=== PATIENT | female | born 1940 | race Two or more races ===

== ENCOUNTER 2017-06-21 06:48 | Day surgery (SDC) | payer MEDICARE, OTHER ==
[~2017-06-21 06:48] MED LIST: Lactated Ringers 1,000 ML IV SCH; Sodium Chloride 0.9% 10 ML Syringe FLUSH PRN; Sodium Chloride 0.9% 2.5 ML Syringe FLUSH PRN
--- NOTE | 2017-06-21 07:26 | PCM.PREANE ---
Preanesthetic Assessment - Anesthesia/Transfusion/Family Hx Anesthesia History: Prior Anesthesia Without Reaction Other Type of Anesthesia Reaction Comment: states she "had paralysis after her rectocele repair" Family History of Anesthesia Reaction: No Transfusion History: No Prior Transfusion(s) Intubation History: Unknown - Review of Systems General: No Symptoms Pulmonary: No Symptoms Cardiovascular: No Symptoms Gastrointestinal: Difficulty Swallowing, Hematochezia Neurological: No Symptoms Other: Reports: None - Physical Assessment O2 Sat by Pulse Oximetry: 97 Respiratory Rate: 16 Vital Signs: Last Vital Signs Temp 35.6 C 06/21/17 07:10 Pulse 79 06/21/17 07:10 Resp 16 06/21/17 07:10 BP 105/58 L 06/21/17 07:10 Pulse Ox 97 06/21/17 07:10 Height: 1.57 m Weight: 72.575 kg ASA Class: 3 Mental Status: Alert & Oriented x3 Airway Class: Mallampati = 2 Dentition: Reports: Partial (upper bilateral on both sides, lower right (all permanent)) Thyro-Mental Finger Breadths: 3 Mouth Opening Finger Breadths: 3 ROM/Head Extension: Full Lungs: Clear to Auscultation, Normal Respiratory Effort Cardiovascular: Regular Rate, Regular Rhythm - Allergies Allergies/Adverse Reactions: Allergies Allergy/AdvReac Type Severity Reaction Status Date / Time acetaminophen Allergy Rash Verified 06/19/17 10:24 [From Excedrin Back & Body] aspirin Allergy Rash Verified 06/19/17 10:24 [From Excedrin Back & Body] calcium carbonate Allergy Rash Verified 06/19/17 10:24 [From Excedrin Back & Body] diclofenac Allergy Rash Verified 06/19/17 10:24 hydrocodone bitartrate Allergy Other Verified 06/19/17 10:24 [From [place]] naproxen sodium [From Aleve] Allergy Rash Verified 06/19/17 10:24 povidone-iodine Allergy Rash Verified 06/19/17 10:24 [From Betadine] soap [From Betadine] Allergy Rash Verified 06/19/17 10:24 Sulfa (Sulfonamide Allergy Cough Verified 06/19/17 10:24 Antibiotics) venom-honey bee Allergy Anaphylactic Verified 06/19/17 10:24 [bee venom (honey bee)] Shock - Blood Blood Available: No - Anesthesia Plan Pre-Op Medication Ordered: None - Acknowledgements Anesthesia Type Planned: MAC Pt an Appropriate Candidate for the Planned Anesthesia: Yes Alternatives and Risks of Anesthesia Discussed w Pt/Guardian: Yes Pt/Guardian Understands and Agrees with Anesthesia Plan: Yes PreAnesthesia Questionnaire HEENT History: Reports: Impaired Vision, Other (See Below) (frequent nose bleeds ) Other HEENT History: wears glasses, has top and bottom permanent bridge Cardiovascular History: Reports: High Cholesterol, Hypertension Gastrointestinal History: Reports: Chronic Constipation, GERD, Hiatal Hernia, Other (See Below) Other Gastrointestinal History: hx gastric ulcer Genitourinary History: Reports: None Musculoskeletal History: Reports: Arthritis, Fibromyalgia Neurological History: Reports: TIA, Other (See Below) Other Neuro History: hx TIA in May, 2011, hx surgery for brain tumor Psychiatric History: Reports: Anxiety, Depression Hematologic History: Reports: Anemia Dermatologic History: Reports: Eczema Other Dermatologic History: eczema to feet - Past Surgical History Head Surgeries/Procedures: Reports: Other (See Below) (intracranial tumor resection) GI Surgical History: Reports: Appendectomy, Cholecystectomy, Colon, Colonoscopy , Other (See Below) Other GI Surgeries/Procedures: hx ventral heria repair, repair of paraesophageal hiatus hernia, hx parial colectomy (sigmoidectomy) Female Surgical History: Reports: Hysterectomy Other Female Surgeries/Procedures: bladder repair & rectocele repair - SUBSTANCE USE Smoking Status *Q: Never Smoker Second Hand Smoke Exposure: No Recreational Drug Use History: No - HOME MEDS Home Medications: Home Meds Losartan/Hydrochlorothiazide [Losartan-HCTZ 50-12.5 MG] 1 tab PO DAILY 12/13/15 [History] Aspirin/Sod Bicarb/Citric Acid [[place] Es Tab Eff] 1 dose PO ASDIRECTED PRN 06/19/17 [History] Clopidogrel Bisulfate [Plavix] 75 mg PO DAILY 06/19/17 [History] DULoxetine HCl [Cymbalta] 60 mg PO BID 06/19/17 [History] Desvenlafaxine [Khedezla] 50 mg PO DAILY 06/19/17 [History] LORazepam 1 tab PO ASDIRECTED PRN 06/19/17 [History] Latanoprost [Xalatan 0.005% Ophth Soln] 1 drop EYEBOTH BEDTIME 06/19/17 [History ] Simvastatin [Zocor] 20 mg PO DAILY 06/19/17 [History] traMADol HCl [Tramadol HCl] 50 mg PO ASDIRECTED PRN 06/19/17 [History] - CURRENT (IN HOUSE) MEDS Current Meds: Current Medications Lactated Ringer's (Ringers, Lactated) 1,000 mls @ 125 mls/hr IV ASDIRECTED [place] Last Admin: 06/21/17 07:13 Dose: 125 mls/hr Sodium Chloride (Saline Flush) 10 ml FLUSH ASDIRECTED PRN PRN Reason: Keep Vein Open Sodium Chloride (Saline Flush) 2.5 ml FLUSH ASDIRECTED PRN PRN Reason: Keep Vein Open
[2017-06-21] MEDS ORDERED: Midazolam 1 MG/ML 2 ML SDV ONE (07:36)
[2017-06-21] MEDS ORDERED: Propofol 200 MG/20 ML SDV ONE ×3 (07:36→08:54)
[2017-06-21] MEDS ORDERED: fentaNYL 100 MCG/2 ML SDV ONE (07:36)
[2017-06-21] MEDS ORDERED: ePHEDrine 50 MG/ML SDV ONE (08:11)
[2017-06-21] MEDS ORDERED: cefOXitin 1 GM Vial ONE (09:03)
[2017-06-21 12:19] VITALS: BP 106/67
--- NOTE | 2017-06-21 12:54 | PCM.OPNOTE ---
- General Post-Op/Procedure Note Date of Surgery/Procedure: 06/21/17 Operative Procedure(s): Diagnostic EGD and colonoscopy Findings: EGD: paraesophageal hernia, unable to intubate the duodenal bulb due to tortuous antrum. Patient had gastritis and an area of thickening along the gastric rugae of the distal body. Colonoscopy: Multiple colon polyps. Largest polyp was in the sigmoid colon requiring several passes with loop cautery. Electrocautery used at the end to achieve hemostasis. - Cecal polyp - 3 ascending colon polyps - 2 hepatic flexure polyps - 3 transverse colon polyps - 1 splenic flexure polyp - 1 descending colon polyp - Large sigmoid colon polyp at 40 cm Pre Op Diagnosis: Dysphagia, changes in bowel habits Post-Op Diagnosis: Multiple colon polyps, gastritis, paraesophageal hernia, gastric body lesion Anesthesia Technique: MAC Primary Surgeon: Maricarmen Matthew Condition: Good Free Text/Narrative:: Intake & Output 06/20/17 06/21/17 06/21/17 22:59 06:59 14:59 Intake Total 1250 Balance 1250
--- NOTE | 2017-06-21 18:34 | OR ---
SURGEON: MARICARMEN MATTHEW MD DATE OF PROCEDURE: 06/21/2017 PREOPERATIVE DIAGNOSIS: Change in bowel habits, dysphagia. POSTOPERATIVE DIAGNOSES: 1. Gastritis. 2. Paraesophageal hernia. 3. Lesion of stomach. 4. Polyp of the cecum. 5. Polyp of ascending colon. 6. Hepatic flexure polyp. 7. Transverse colon polyp. 8. Splenic flexure polyp. 9. Descending colon polyp. 10.Polyp of sigmoid colon. PROCEDURE PERFORMED: Diagnostic EGD and colonoscopy. ENDOSCOPIST: Dr. Maricarmen Matthew. ANESTHESIA: MAC. INSTRUMENT USED: Olympus endoscope, Olympus colonoscope. EXTENT OF EXAM: To the pylorus, to the cecum. PREPARATION: Good. LIMITATIONS: Unable to transverse my endoscope past the pylorus due to anatomic positioning of the pylorus. INDICATIONS: The patient is a 77-year-old female, who comes to me with changes in her bowel habits as well as dysphagia. She underwent an esophagram that showed a paraesophageal hernia. She does have a history of a previous [place]. Her surgical history is significant for either for some surgical procedure for a rectal prolapse. The patient and I discussed the need to perform a diagnostic EGD and colonoscopy. We discussed the procedures as well as expected perioperative course. We discussed the risks, including bleeding, infection, or damage to surrounding structures, including perforation. The patient verbalized understanding and wishes to proceed. PROCEDURE IN DETAIL: The patient was brought into the endoscopy suite and placed in the left lateral decubitus position. A time-out was completed verifying the patient's name, age, date of , allergies, and procedure to be performed. A bite block was placed in the patient's mouth. Monitored anesthesia care was induced and continuous oxygen was provided via nasal cannula throughout the procedure. After adequate sedation was achieved, a well lubricated endoscope was placed in the patient's mouth and advanced under direct visualization into the stomach. I was unable to get my scope to go through the pylorus due to some tortuosity of the distal stomach. I attempted this multiple times, but was unable to do so. I could see the duodenal bulb and it did appear normal. A photograph was taken of the pylorus as well as with the scope in the retroflexed position. The patient was noted to have a paraesophageal hernia consistent with the findings on her previous esophagram. The patient did have gastritis in the gastric body and antrum. Along the distal body in the greater curvature, there were white thickened lesions along the mucosal folds. Biopsies were taken of the gastric body, antrum, and fundus and sent for H. pylori testing. Biopsies were taken of the gastric body lesions and sent for pathologic review. The scope was then brought into the distal esophagus and a photograph was taken. This area appeared normal with no evidence of inflammation or erosions. The remainder of the esophagus was normal. The scope was then removed from the patient and this portion of procedure was terminated. A digital rectal exam was performed, this exam was within normal limits. A well lubricated colonoscope was then inserted into the rectum and advanced under direct visualization of the cecum. The cecum was identified by both visual and anatomic landmarks. A photograph was taken of the cecal cap. The scope was then retroflexed within the cecum and a photograph was taken. The patient was noted have multiple polyps throughout the colon. There was one polyp in the cecum that was removed using a cold biopsy forceps. The patient had 3 ascending colon polyps, 2 hepatic flexure polyps, 3 transverse colon polyps, a splenic flexure polyp and a descending colon polyp. These were all removed using a cold biopsy forceps. The patient was noted to have a large irregular appearing mass in the sigmoid colon. This was removed using a loop wire and electrocautery. It was removed from the patient's both by suction as well as using a [place]. After removing grossly apparent mass, the patient was noted to have some bleeding at the base. Electrocautery was used to obtain hemostasis. I finished the remainder of my colonoscopy, then re-entered the colon and double-checked the area to ensure that the area had stopped bleeding. A good clot was noted and no further bleeding was found. The remainder of the colon appeared normal. The scope was brought into the rectum and retroflexed then a photograph was taken. This appeared normal. The scope was then straightened out and removed from the patient. The patient tolerated the procedure well and was taken to the PACU in stable condition. I was there with the patient in the postoperative care unit. ENDOSCOPIC FINDINGS: 1. Gastritis. 2. Paraesophageal hernia. 3. Lesion of stomach. 4. Polyp of the cecum. 5. Polyp of ascending colon. 6. Hepatic flexure polyp. 7. Transverse colon polyp. 8. Splenic flexure polyp. 9. Descending colon polyp. 10.Polyp of sigmoid colon. RECOMMENDATIONS: Follow up in clinic in 2 weeks. The patient is to avoid any aspirin or NSAID within the next week. I will also start her on pantoprazole for the gastritis. CRUZ DURHAM /[id number] MTDD
== END 2017-06-21 10:00 | disposition home or self-care (01) ==
LOC: MW.SDS 06:48
PROVIDERS: ATTEND Surgery
DX: D12.0 Benign neoplasm of cecum (principal); K29.50 Unspecified chronic gastritis without bleeding; K44.9 Diaphragmatic hernia without obstruction or gangrene; F32.9 Major depressive disorder, single episode, unspecified; D12.3 Benign neoplasm of transverse colon; D12.2 Benign neoplasm of ascending colon; D12.4 Benign neoplasm of descending colon; D12.5 Benign neoplasm of sigmoid colon; M79.7 Fibromyalgia; M19.90 Unspecified osteoarthritis, unspecified site; J32.9 Chronic sinusitis, unspecified; H40.9 Unspecified glaucoma; F41.9 Anxiety disorder, unspecified; I10 Essential (primary) hypertension; K21.9 Gastro-esophageal reflux disease without esophagitis; E78.5 Hyperlipidemia, unspecified; Z88.2 Allergy status to sulfonamides; Z88.8 Allergy status to other drugs, medicaments and biological substances; Z91.030 Bee allergy status; Z79.51 Long term (current) use of inhaled steroids; Z79.899 Other long term (current) drug therapy; Z98.890 Other specified postprocedural states; Z90.49 Acquired absence of other specified parts of digestive tract; Z90.710 Acquired absence of both cervix and uterus; Z86.73 Personal history of transient ischemic attack (TIA), and cerebral infarction without residual deficits
CPT/HCPCS: 43239; 45378; 88305; 88312; J0694; J2250; J3010; J7120; 00740; J2704

== ENCOUNTER 2017-11-11 16:16 | Emergency (ER) | payer MEDICARE, OTHER ==
--- NOTE | 2017-11-11 16:48 | EDM.PDOC ---
ED HPI GENERAL MEDICAL PROBLEM - General Chief Complaint: Skin Complaint Stated Complaint: RT HAND SWOLLEN Time Seen by Provider: 11/11/17 16:25 Source of Information: Reports: Patient History Limitations: Reports: No Limitations - History of Present Illness INITIAL COMMENTS - FREE TEXT/NARRATIVE: HISTORY AND PHYSICAL: History of present illness: Shayy is a 77-year-old female here with concerns for a foreign body in her right hand. He states that yesterday she was working in her garden and scraped her hand against a stick and believes there is a splinter in her hand. Hand is now swollen, erythematous, and painful. She denies fevers. She has not taken anything OTC for her symptoms. Review of systems: As per history of present illness and below otherwise all systems reviewed and negative. Past medical history: As per history of present illness and as reviewed below otherwise noncontributory. Surgical history: As per history of present illness and as reviewed below otherwise noncontributory. Social history: No reported history of drug or alcohol abuse. Family history: As per history of present illness and as reviewed below otherwise noncontributory. Physical exam: HEENT: Atraumatic, normocephalic, pupils reactive, negative for conjunctival pallor or scleral icterus, mucous membranes moist, throat clear, neck supple, nontender, trachea midline. Extremities: Right hand is swollen and erythematous from the mid-palm distally. There is a tiny puncture site at the medial aspect of the hand. Neurovascular unremarkable. Neuro: Awake, alert, oriented. Cranial nerves II through XII unremarkable. Cerebellum unremarkable. Motor and sensory unremarkable throughout. Exam nonfocal. Notes: Diagnostics: [X-ray right hand] Therapeutics: [1 g IM Rocephin] Impression: [Cellulitis] Plan: [1. Take Keflex as directed 2. [place] orthopedic hand dressing placed 3. Erythema outlined 4. Follow-up in ED tomorrow, sooner as needed as discussed] Definitive disposition and diagnosis as appropriate pending reevaluation and review of above. Right Hand Pain Score (Numeric/FACES): 7 - Related Data Allergies Allergy/AdvReac Type Severity Reaction Status Date / Time acetaminophen Allergy Rash Verified 06/19/17 10:24 [From Excedrin Back & Body] aspirin Allergy Rash Verified 06/19/17 10:24 [From Excedrin Back & Body] calcium carbonate Allergy Rash Verified 06/19/17 10:24 [From Excedrin Back & Body] diclofenac Allergy Rash Verified 06/19/17 10:24 hydrocodone bitartrate Allergy Other Verified 06/19/17 10:24 [From [place]] naproxen sodium [From Aleve] Allergy Rash Verified 06/19/17 10:24 povidone-iodine Allergy Rash Verified 06/19/17 10:24 [From Betadine] soap [From Betadine] Allergy Rash Verified 06/19/17 10:24 Sulfa (Sulfonamide Allergy Cough Verified 06/19/17 10:24 Antibiotics) venom-honey bee Allergy Anaphylactic Verified 06/19/17 10:24 [bee venom (honey bee)] Shock Home Meds: Home Meds Losartan/Hydrochlorothiazide [Losartan-HCTZ 50-12.5 MG] 1 tab PO DAILY 12/13/15 [History] DULoxetine HCl [Cymbalta] 60 mg PO BID 06/19/17 [History] Desvenlafaxine [Khedezla] 50 mg PO DAILY 06/19/17 [History] LORazepam 1 tab PO ASDIRECTED PRN 06/19/17 [History] Latanoprost [Xalatan 0.005% Ophth Soln] 1 drop EYEBOTH BEDTIME 06/19/17 [History ] Simvastatin [Zocor] 20 mg PO DAILY 06/19/17 [History] traMADol HCl [Tramadol HCl] 50 mg PO ASDIRECTED PRN 06/19/17 [History] Pantoprazole [ProTONIX] 40 mg PO ACBREAKFAST #30 tab.cr 06/21/17 [Rx] Past Medical History HEENT History: Reports: Impaired Vision, Other (See Below) (frequent nose bleeds ) Other HEENT History: Refuses to give any information. Uncooperative to answering questions Cardiovascular History: Reports: High Cholesterol, Hypertension Gastrointestinal History: Reports: Chronic Constipation, GERD, Hiatal Hernia, Other (See Below) Other Gastrointestinal History: hx gastric ulcer Genitourinary History: Reports: None Musculoskeletal History: Reports: Arthritis, Fibromyalgia Neurological History: Reports: TIA, Other (See Below) Other Neuro History: hx TIA in May, 2011, hx surgery for brain tumor Psychiatric History: Reports: Anxiety, Depression Hematologic History: Reports: Anemia Dermatologic History: Reports: Eczema Other Dermatologic History: eczema to feet - Past Surgical History Head Surgeries/Procedures: Reports: Other (See Below) (intracranial tumor resection) GI Surgical History: Reports: Appendectomy, Cholecystectomy, Colon, Colonoscopy , Other (See Below) Other GI Surgeries/Procedures: hx ventral heria repair, repair of paraesophageal hiatus hernia, hx parial colectomy (sigmoidectomy) Female Surgical History: Reports: Hysterectomy Other Female Surgeries/Procedures: bladder repair & rectocele repair Social & Family History - Family History Family Medical History: Unobtainable - Tobacco Use Smoking Status *Q: Unknown Ever Smoked Second Hand Smoke Exposure: No - Recreational Drug Use Recreational Drug Use: No ED ROS GENERAL - Review of Systems Review Of Systems: ROS reveals no pertinent complaints other than HPI. ED EXAM, SKIN/RASH Exam: See Below (See dictation) Course - Vital Signs Last Recorded V/S: Last Vital Signs Temp 37.1 C 11/11/17 16:53 Pulse 91 11/11/17 16:53 Resp 16 11/11/17 16:53 BP 160/67 H 11/11/17 16:53 Pulse Ox 96 11/11/17 16:53 - Orders/Labs/Meds Orders: Active Orders 24 hr Category Date Time Status Vaccines to be Administered [RC] PER UNIT ROUTINE Care 11/11/17 17:10 Active Hand 2V Rt [CR] Stat Exams 11/11/17 16:52 Taken Meds: Medications Discontinued Medications Generic Name Dose Route Start Last Admin Trade Name Freq PRN Reason Stop Dose Admin Diphtheria/Tetanus/Acell Pertussis 0.5 ml 11/11/17 17:10 Adacel IM 11/11/17 17:11 .ONCE ONE Ceftriaxone Sodium 1,000 mg/ 4 mls @ 4 mls/sec 11/11/17 17:05 Lidocaine HCl IM 11/11/17 17:06 ONETIME ONE Departure - Departure Time of Disposition: 17:18 Disposition: Home, Self-Care 01 Condition: Good Clinical Impression: Cellulitis of hand, right - Discharge Information Referrals: PCP,None [Primary Care Provider] - Forms: ED Department Discharge Additional Instructions: The following information is given to patients seen in the emergency department who are being discharged to home. This information is to outline your options for follow-up care. We provide all patients seen in our emergency department with a follow-up referral. The need for follow-up, as well as the timing and circumstances, are variable depending upon the specifics of your emergency department visit. If you don't have a primary care physician on staff, we will provide you with a referral. We always advise you to contact your personal physician following an emergency department visit to inform them of the circumstance of the visit and for follow-up with them and/or the need for any referrals to a consulting specialist. The emergency department will also refer you to a specialist when appropriate. This referral assures that you have the opportunity for follow-up care with a specialist. All of these measure are taken in an effort to provide you with optimal care, which includes your follow-up. Under all circumstances we always encourage you to contact your private physician who remains a resource for coordinating your care. When calling for follow-up care, please make the office aware that this follow-up is from your recent emergency room visit. If for any reason you are refused follow-up, please contact the [facility] Emergency Department at and asked to speak to the emergency department charge nurse. 1. Take Keflex as directed 2. Keep hand elevated 3 Follow-up in ED tomorrow, sooner as needed as discussed - My Orders Last 24 Hours: My Active Orders 11/11/17 16:52 Hand 2V Rt [CR] Stat 11/11/17 17:10 Vaccines to be Administered [RC] PER UNIT ROUTINE - Assessment/Plan Last 24 Hours: My Active Orders 11/11/17 16:52 Hand 2V Rt [CR] Stat 11/11/17 17:10 Vaccines to be Administered [RC] PER UNIT ROUTINE
[2017-11-11 17:01] VITALS: BP 160/67
[2017-11-11] MEDS ORDERED: cefTRIAXone 1,000 MG in Lidocaine 1% 4 ML IM ONE (17:05)
[2017-11-11] MEDS ORDERED: Diphtheria,Pertussis(Acell),Tetanus Vaccine 0.5 ML Syringe IM ONE (17:10)
--- NOTE | 2017-11-13 11:05 | CR ---
EXAM DATE: 11/11/17 PATIENT'S AGE: 77 Patient: MICKY PHELAN Facility: [place], [place] Site . Site : [id number] Study: XRay Extremity Right hand [id number] 5:01:39 PM Ordering Physician: Doctor Deal Final Report: HISTORY: Pain. TECHNIQUE: Right hand 2 views. COMPARISON: None. FINDINGS: No fracture or dislocation. 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 Mild deformity of the ulnar styloid. Well-circumscribed lucencies with sclerotic margins in the distal ulna near the styloid and in the dorsal triquetrum. Calcification near the distal radioulnar joint. No acute findings. IMPRESSION: No acute findings. 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 Dictated by Carlos Lovell MD @ Nov 11 2017 5:12PM (Electronic Signature) Report Signed by Proxy. FIDELIA
== END 2017-11-11 17:48 | disposition home or self-care (01) ==
LOC: MW.ED 16:16
DX: L03.113 Cellulitis of right upper limb (principal); E78.00 Pure hypercholesterolemia, unspecified; I10 Essential (primary) hypertension; K21.9 Gastro-esophageal reflux disease without esophagitis; Z23 Encounter for immunization; Z88.2 Allergy status to sulfonamides; Z88.6 Allergy status to analgesic agent; Z79.899 Other long term (current) drug therapy; Z86.73 Personal history of transient ischemic attack (TIA), and cerebral infarction without residual deficits; Z90.49 Acquired absence of other specified parts of digestive tract
CPT/HCPCS: 73120; 90471; 90715; 96372; 99283; J0696; J2001

== ENCOUNTER 2017-11-12 10:42 | Emergency (ER) | payer MEDICARE, OTHER ==
--- NOTE | 2017-11-12 11:03 | EDM.PDOC ---
ED HPI GENERAL MEDICAL PROBLEM - General Chief Complaint: Wound Recheck Stated Complaint: RT HAND HURTS Time Seen by Provider: 11/12/17 10:44 Source of Information: Reports: Patient History Limitations: Reports: No Limitations - History of Present Illness INITIAL COMMENTS - FREE TEXT/NARRATIVE: HISTORY AND PHYSICAL: History of present illness: Amita is a 77-year-old female here for recheck of her left hand cellulitis. Patient reports that swelling has gone down and is not as tender. She is able to move her fingers better. Denies any purulent discharge from the puncture site. She denies any fevers or chills. Review of systems: As per history of present illness and below otherwise all systems reviewed and negative. Past medical history: As per history of present illness and as reviewed below otherwise noncontributory. Surgical history: As per history of present illness and as reviewed below otherwise noncontributory. Social history: No reported history of drug or alcohol abuse. Family history: As per history of present illness and as reviewed below otherwise noncontributory. Physical exam: HEENT: Atraumatic, normocephalic, pupils reactive, negative for conjunctival pallor or scleral icterus, mucous membranes moist, throat clear, neck supple, nontender, trachea midline. Lungs: Clear to auscultation, breath sounds equal bilaterally, chest nontender. Heart: S1S2, regular, negative for clicks, rubs, or JVD. Skin: Erythema and swelling of the left hand from mid kerns and dorsal hand distally. Very minimal erythema 1-2 cm outside of marked line. Puncture site at the ulnar side of the palm is without drainage. Extremities: Atraumatic, negative for cords or calf pain. Neurovascular unremarkable. Neuro: Awake, alert, oriented. Cranial nerves II through XII unremarkable. Cerebellum unremarkable. Motor and sensory unremarkable throughout. Exam nonfocal. Notes: Diagnostics: [CBC, CMP, Blood culture x 2] Therapeutics: [] Impression: [Cellulitis] Plan: [1. Take antibiotic as directed 2. Keep hand elevated 3. Follow-up with your primary care provider 4. Return to ED as needed as discussed] Definitive disposition and diagnosis as appropriate pending reevaluation and review of above. Duration: Day(s): (2) Location: Reports: Upper Extremity, Left Right Hand Pain Score (Numeric/FACES): 5 - Related Data Allergies Allergy/AdvReac Type Severity Reaction Status Date / Time acetaminophen Allergy Rash Verified 11/12/17 10:49 [From Excedrin Back & Body] aspirin Allergy Rash Verified 11/12/17 10:49 [From Excedrin Back & Body] calcium carbonate Allergy Rash Verified 11/12/17 10:49 [From Excedrin Back & Body] diclofenac Allergy Rash Verified 11/12/17 10:49 hydrocodone bitartrate Allergy Other Verified 11/12/17 10:49 [From [place]] naproxen sodium [From Aleve] Allergy Rash Verified 11/12/17 10:49 povidone-iodine Allergy Rash Verified 11/12/17 10:49 [From Betadine] soap [From Betadine] Allergy Rash Verified 11/12/17 10:49 Sulfa (Sulfonamide Allergy Cough Verified 11/12/17 10:49 Antibiotics) venom-honey bee Allergy Anaphylactic Verified 11/12/17 10:49 [bee venom (honey bee)] Shock Home Meds: Home Meds Losartan/Hydrochlorothiazide [Losartan-HCTZ 50-12.5 MG] 1 tab PO DAILY 12/13/15 [History] DULoxetine HCl [Cymbalta] 60 mg PO BID 06/19/17 [History] Desvenlafaxine [Khedezla] 50 mg PO DAILY 06/19/17 [History] LORazepam 1 tab PO ASDIRECTED PRN 06/19/17 [History] Latanoprost [Xalatan 0.005% Ophth Soln] 1 drop EYEBOTH BEDTIME 06/19/17 [History ] Simvastatin [Zocor] 20 mg PO DAILY 06/19/17 [History] traMADol HCl [Tramadol HCl] 50 mg PO ASDIRECTED PRN 06/19/17 [History] Pantoprazole [ProTONIX] 40 mg PO ACBREAKFAST #30 tab.cr 06/21/17 [Rx] Past Medical History HEENT History: Reports: Impaired Vision, Other (See Below) Other HEENT History: Refuses to give any information. Uncooperative to answering questions Cardiovascular History: Reports: High Cholesterol, Hypertension Gastrointestinal History: Reports: Chronic Constipation, GERD, Hiatal Hernia, Other (See Below) Other Gastrointestinal History: hx gastric ulcer Genitourinary History: Reports: None Musculoskeletal History: Reports: Arthritis, Fibromyalgia Neurological History: Reports: TIA, Other (See Below) Other Neuro History: hx TIA in May, 2011, hx surgery for brain tumor Psychiatric History: Reports: Anxiety, Depression Hematologic History: Reports: Anemia Dermatologic History: Reports: Eczema Other Dermatologic History: eczema to feet - Infectious Disease History Infectious Disease History: Reports: None - Past Surgical History Head Surgeries/Procedures: Reports: Other (See Below) GI Surgical History: Reports: Appendectomy, Cholecystectomy, Colon, Colonoscopy , Other (See Below) Other GI Surgeries/Procedures: hx ventral heria repair, repair of paraesophageal hiatus hernia, hx parial colectomy (sigmoidectomy) Female Surgical History: Reports: Hysterectomy Other Female Surgeries/Procedures: bladder repair & rectocele repair Social & Family History - Family History Family Medical History: Unobtainable - Tobacco Use Smoking Status *Q: Never Smoker Second Hand Smoke Exposure: No - Recreational Drug Use Recreational Drug Use: No ED ROS GENERAL - Review of Systems Review Of Systems: ROS reveals no pertinent complaints other than HPI. ED EXAM, SKIN/RASH Exam: See Below (See dictation) Course - Vital Signs Last Recorded V/S: Last Vital Signs Temp 35.8 C 11/12/17 10:50 Pulse 77 11/12/17 10:50 Resp 20 11/12/17 10:50 BP 138/47 L 11/12/17 10:50 Pulse Ox 97 11/12/17 10:50 - Orders/Labs/Meds Orders: Active Orders 24 hr Category Date Time Status CULTURE BLOOD [BC] Stat Lab 11/12/17 11:13 Received CULTURE BLOOD [BC] Stat Lab 11/12/17 11:24 Results Blood Culture x2 Reflex Set [OM.PC] Stat Oth 11/12/17 11:06 Ordered Labs: Laboratory Tests 11/12/17 11/12/17 Range/Units 11:13 11:13 WBC 6.97 (4.0-11.0) K/uL RBC 4.35 (4.30-5.90) M/uL Hgb 13.1 (12.0-16.0) g/dL Hct 38.6 (36.0-46.0) % MCV 88.7 (80.0-98.0) fL MCH 30.1 (27.0-32.0) pg MCHC 33.9 (31.0-37.0) g/dL RDW Std Deviation 43.9 (28.0-62.0) fl RDW Coeff of Jennyfer 13 (11.0-15.0) % Plt Count 311 (150-400) K/uL MPV 9.40 (7.40-12.00) fL Neut % (Auto) 53.5 (48.0-80.0) % Lymph % (Auto) 35.7 (16.0-40.0) % [place] % (Auto) 8.0 (0.0-15.0) % Eos % (Auto) 2.4 (0.0-7.0) % Baso % (Auto) 0.4 (0.0-1.5) % Neut # (Auto) 3.7 (1.4-5.7) K/uL Lymph # (Auto) 2.5 H (0.6-2.4) K/uL [place] # (Auto) 0.6 (0.0-0.8) K/uL Eos # (Auto) 0.2 (0.0-0.7) K/uL Baso # (Auto) 0.0 (0.0-0.1) K/uL Nucleated RBC % 0.0 /100WBC Nucleated RBCs # 0 K/uL Sodium 139 (136-145) mmol/L Potassium 3.5 (3.5-5.1) mmol/L Chloride 104 (98-107) mmol/L Carbon Dioxide 23.3 (21.0-32.0) mmol/L BUN 13 (7.0-18.0) mg/dL Creatinine 0.8 (0.6-1.0) mg/dL Est Cr Clr Drug Dosing 45.85 mL/min Estimated GFR (MDRD) > 60.0 ml/min Glucose 104 (74-106) mg/dL Calcium 9.2 (8.5-10.1) mg/dL Total Bilirubin 0.6 (0.2-1.0) mg/dL AST 21 (15-37) IU/L ALT 29 (14-63) IU/L Alkaline Phosphatase 99 (46-116) U/L Total Protein 7.1 (6.4-8.2) g/dL Albumin 3.6 (3.4-5.0) g/dL Globulin 3.5 (2.0-3.5) g/dL Albumin/Globulin Ratio 1.0 L (1.3-2.8) Departure - Departure Time of Disposition: 11:22 Disposition: Home, Self-Care 01 Condition: Good Clinical Impression: Cellulitis - Discharge Information Instructions: Cellulitis, Adult Referrals: PCP,None [Primary Care Provider] - Forms: ED Department Discharge Additional Instructions: The following information is given to patients seen in the emergency department who are being discharged to home. This information is to outline your options for follow-up care. We provide all patients seen in our emergency department with a follow-up referral. The need for follow-up, as well as the timing and circumstances, are variable depending upon the specifics of your emergency department visit. If you don't have a primary care physician on staff, we will provide you with a referral. We always advise you to contact your personal physician following an emergency department visit to inform them of the circumstance of the visit and for follow-up with them and/or the need for any referrals to a consulting specialist. The emergency department will also refer you to a specialist when appropriate. This referral assures that you have the opportunity for follow-up care with a specialist. All of these measure are taken in an effort to provide you with optimal care, which includes your follow-up. Under all circumstances we always encourage you to contact your private physician who remains a resource for coordinating your care. When calling for follow-up care, please make the office aware that this follow-up is from your recent emergency room visit. If for any reason you are refused follow-up, please contact the [facility] Emergency Department at and asked to speak to the emergency department charge nurse. 1. Take antibiotic as directed 2. Keep hand elevated 3. Follow-up with your primary care provider 4. Return to ED as needed as discussed - My Orders Last 24 Hours: My Active Orders 11/12/17 11:06 Blood Culture x2 Reflex Set [OM.PC] Stat 11/12/17 11:13 CULTURE BLOOD [BC] Stat 11/12/17 11:24 CULTURE BLOOD [BC] Stat - Assessment/Plan Last 24 Hours: My Active Orders 11/12/17 11:06 Blood Culture x2 Reflex Set [OM.PC] Stat 11/12/17 11:13 CULTURE BLOOD [BC] Stat 11/12/17 11:24 CULTURE BLOOD [BC] Stat
[2017-11-12 11:53] LABS: CHLORIDE,CL 104 mmol/L (98-107); SODIUM,NA 139 mmol/L (136-145)
[2017-11-12 12:05] VITALS: BP 131/63
== END 2017-11-12 12:03 | disposition home or self-care (01) ==
LOC: MW.ED 10:42
DX: L03.114 Cellulitis of left upper limb (principal); E78.00 Pure hypercholesterolemia, unspecified; I10 Essential (primary) hypertension; F41.9 Anxiety disorder, unspecified; F32.9 Major depressive disorder, single episode, unspecified; Z90.49 Acquired absence of other specified parts of digestive tract; Z88.6 Allergy status to analgesic agent; Z86.73 Personal history of transient ischemic attack (TIA), and cerebral infarction without residual deficits; Z88.2 Allergy status to sulfonamides; Z79.899 Other long term (current) drug therapy
CPT/HCPCS: 36415; 80053; 85025; 87040; 99283

== ENCOUNTER 2017-11-17 11:45 | Emergency (ER) | payer MEDICARE, OTHER ==
[2017-11-17] MEDS ORDERED: Ondansetron 4 MG/2 ML SDV IVPUSH ONE (11:47)
[2017-11-17] MEDS ORDERED: Sodium Chloride 0.9% 10 ML Syringe FLUSH PRN (11:47)
[2017-11-17] MEDS ORDERED: Sodium Chloride 0.9% 2.5 ML Syringe FLUSH PRN (11:47)
[2017-11-17] MEDS ORDERED: Ondansetron 4 MG Tab.DIS PO PRN (11:53)
[2017-11-17 12:03] VITALS: BP 151/71
--- NOTE | 2017-11-17 12:21 | EDM.PDOC ---
ED HPI GENERAL MEDICAL PROBLEM - General Chief Complaint: Gastrointestinal Problem Stated Complaint: VOMITING Time Seen by Provider: 11/17/17 11:46 Source of Information: Reports: Patient History Limitations: Reports: No Limitations - History of Present Illness INITIAL COMMENTS - FREE TEXT/NARRATIVE: HISTORY AND PHYSICAL: History of present illness: Patient is a 77-year-old female who presents to the emergency room with complaints of nausea and vomiting. States she had surgery on her right palmar surface removing a foreign body yesterday. She was given tramadol for pain management. This morning she had coffee and took her pain medication without eating anything with her morning meds. She proceeded to go to her doctor's appointment at the clinic and developed nausea and vomiting. She was encouraged to come to the emergency room for evaluation. Upon her arrival she correlates her nausea and vomiting with taking her pain medication without any food. She denies any fever, chills, chest pain, shortness of breath or cough. She denies any abdominal pain, diarrhea, and the patient. Review of systems: As per history of present illness and below otherwise all systems reviewed and negative. Past medical history: As per history of present illness and as reviewed below otherwise noncontributory. Surgical history: As per history of present illness and as reviewed below otherwise noncontributory. Social history: No reported history of drug or alcohol abuse. Family history: As per history of present illness and as reviewed below otherwise noncontributory. Physical exam: General: HEENT: Atraumatic, normocephalic, pupils equal and reactive bilaterally, negative for conjunctival pallor or scleral icterus, mucous membranes moist, throat clear, neck supple, nontender, trachea midline. No drooling or trismus noted. No meningeal signs Lungs: Clear to auscultation, breath sounds equal bilaterally, chest nontender. Heart: S1S2, regular rate and rhythm without overt murmur Abdomen: Soft, nondistended, nontender. Negative for masses or hepatosplenomegaly. Negative for costovertebral tenderness. Pelvis: Stable nontender. Genitourinary: Deferred. Rectal: Deferred. Skin: Intact, warm, dry. No lesions or rashes noted. Extremities: Atraumatic, negative for cords or calf pain. Neurovascular unremarkable. Neuro: Awake, alert, oriented. Cranial nerves II through XII unremarkable. Cerebellum unremarkable. Motor and sensory unremarkable throughout. Exam nonfocal. Notes: At this time the patient would like to receive antinausea medications and hold on any labs or IV fluids. Zofran ODT was given. 15-20 minutes post-Zofran ODT the patient was able to eat a sandwich and drink some orange juice. She states she feels much better and would like to be discharged to home. We did discuss doing lab work at this time, she declines. States she will follow-up or return to the emergency room if symptoms return or new symptoms develop. Supportive care measures were reviewed and discussed. We' ll give her prescription for Zofran ODT, 6 tablets, no refill. She denies any further questions or concerns at this time. Diagnostics: [] Therapeutics: EKG Impression: Nausea Plan: 1. Please take the Zofran as prescribed as needed for nausea. Take one tablet every 8 hours. Medication will dissolve in your mouth. 2. Follow-up with your primary caregiver in the next 1-2 days. Return to the ED as needed and as discussed. Definitive disposition and diagnosis as appropriate pending reevaluation and review of above. Onset: Today Duration: Minutes: neck Pain Score (Numeric/FACES): 6 - Related Data Allergies Allergy/AdvReac Type Severity Reaction Status Date / Time acetaminophen Allergy Rash Verified 11/17/17 12:00 [From Excedrin Back & Body] aspirin Allergy Rash Verified 11/17/17 12:00 [From Excedrin Back & Body] calcium carbonate Allergy Rash Verified 11/17/17 12:00 [From Excedrin Back & Body] diclofenac Allergy Rash Verified 11/17/17 12:00 hydrocodone bitartrate Allergy Other Verified 11/17/17 12:00 [From [place]] naproxen sodium [From Aleve] Allergy Rash Verified 11/17/17 12:00 povidone-iodine Allergy Rash Verified 11/17/17 12:00 [From Betadine] soap [From Betadine] Allergy Rash Verified 11/17/17 12:00 Sulfa (Sulfonamide Allergy Cough Verified 11/17/17 12:00 Antibiotics) venom-honey bee Allergy Anaphylactic Verified 11/17/17 12:00 [bee venom (honey bee)] Shock Home Meds: Home Meds Losartan/Hydrochlorothiazide [Losartan-HCTZ 50-12.5 MG] 1 tab PO DAILY 12/13/15 [History] DULoxetine HCl [Cymbalta] 60 mg PO BID 06/19/17 [History] Desvenlafaxine [Khedezla] 50 mg PO DAILY 06/19/17 [History] LORazepam 1 tab PO ASDIRECTED PRN 06/19/17 [History] Latanoprost [Xalatan 0.005% Ophth Soln] 1 drop EYEBOTH BEDTIME 06/19/17 [History ] Simvastatin [Zocor] 20 mg PO DAILY 06/19/17 [History] traMADol HCl [Tramadol HCl] 50 mg PO ASDIRECTED PRN 06/19/17 [History] Pantoprazole [ProTONIX] 40 mg PO ACBREAKFAST #30 tab.cr 06/21/17 [Rx] Past Medical History HEENT History: Reports: Impaired Vision, Other (See Below) Other HEENT History: Refuses to give any information. Uncooperative to answering questions Cardiovascular History: Reports: High Cholesterol, Hypertension Respiratory History: Reports: None Gastrointestinal History: Reports: Chronic Constipation, GERD, Hiatal Hernia, Other (See Below) Other Gastrointestinal History: hx gastric ulcer Genitourinary History: Reports: None [employer]PER[employer] History: Reports: None Musculoskeletal History: Reports: Arthritis, Fibromyalgia Neurological History: Reports: TIA, Other (See Below) Other Neuro History: hx TIA in May, 2011, hx surgery for brain tumor Psychiatric History: Reports: Anxiety, Depression Endocrine/Metabolic History: Reports: None Hematologic History: Reports: Anemia Immunologic History: Reports: None Oncologic (Cancer) History: Reports: None Dermatologic History: Reports: Eczema Other Dermatologic History: eczema to feet - Infectious Disease History Infectious Disease History: Reports: None - Past Surgical History Head Surgeries/Procedures: Reports: Other (See Below) HEENT Surgical History: Reports: None Cardiovascular Surgical History: Reports: None Respiratory Surgical History: Reports: None GI Surgical History: Reports: Appendectomy, Cholecystectomy, Colon, Colonoscopy , Other (See Below) Other GI Surgeries/Procedures: hx ventral heria repair, repair of paraesophageal hiatus hernia, hx parial colectomy (sigmoidectomy) Female Surgical History: Reports: Hysterectomy Other Female Surgeries/Procedures: bladder repair & rectocele repair Endocrine Surgical History: Reports: None Neurological Surgical History: Reports: None Musculoskeletal Surgical History: Reports: Other (See Below) Other Musculoskeletal Surgeries/Procedures:: right hand surgery Oncologic Surgical History: Reports: None Dermatological Surgical History: Reports: None Social & Family History - Family History Family Medical History: Unobtainable - Tobacco Use Smoking Status *Q: Never Smoker Second Hand Smoke Exposure: No - Caffeine Use Caffeine Use: Reports: Coffee - Recreational Drug Use Recreational Drug Use: No ED ROS GENERAL - Review of Systems Review Of Systems: ROS reveals no pertinent complaints other than HPI. ED EXAM, GENERAL - Physical Exam Exam: See Below Course - Vital Signs Last Recorded V/S: Last Vital Signs Temp 96.4 F 11/17/17 12:00 Pulse 75 11/17/17 12:00 Resp 20 11/17/17 12:00 BP 151/71 H 11/17/17 12:00 Pulse Ox 98 11/17/17 12:00 - Orders/Labs/Meds Orders: Active Orders 24 hr Category Date Time Status EKG Documentation Completion [RC] STAT Care 11/17/17 11:47 Active CBC WITH AUTO DIFF [HEME] Stat Lab 11/17/17 11:46 Stop Req COMPREHENSIVE METABOLIC PN,CMP [CHEM] Stat Lab 11/17/17 11:47 Stop Req TROPONIN I [CHEM] Stat Lab 11/17/17 11:47 Stop Req Ondansetron [Zofran ODT] Med 11/17/17 11:53 Stop Req 8 mg PO ONETIME PRN Sodium Chloride 0.9% [Saline Flush] Med 11/17/17 11:47 Stop Req 10 ml FLUSH ASDIRECTED PRN Sodium Chloride 0.9% [Saline Flush] Med 11/17/17 11:47 Stop Req 2.5 ml FLUSH ASDIRECTED PRN Medication Orders Sodium Chloride (Saline Flush) 2.5 ml FLUSH ASDIRECTED PRN PRN Reason: Keep Vein Open Meds: Medications Generic Name Dose Route Start Last Admin Trade Name Freq PRN Reason Stop Dose Admin Sodium Chloride 2.5 ml 11/17/17 11:47 Saline Flush FLUSH ASDIRECTED PRN Keep Vein Open Discontinued Medications Generic Name Dose Route Start Last Admin Trade Name Freq PRN Reason Stop Dose Admin Ondansetron HCl 4 mg 11/17/17 11:47 11/17/17 11:56 Zofran IVPUSH 11/17/17 11:48 Not Given ONETIME ONE Ondansetron HCl 8 mg 11/17/17 11:53 11/17/17 11:59 Zofran Odt PO 8 mg ONETIME PRN Administration Nausea/Vomiting Sodium Chloride 10 ml 11/17/17 11:47 Saline Flush FLUSH ASDIRECTED PRN Keep Vein Open Departure - Departure Time of Disposition: 12:24 Disposition: Home, Self-Care 01 Clinical Impression: Nausea - Discharge Information Instructions: Nausea, Adult, [id number] Referrals: PCP,None [Primary Care Provider] - Forms: ED Department Discharge Additional Instructions: The following information is given to patients seen in the emergency department who are being discharged to home. This information is to outline your options for follow-up care. We provide all patients seen in our emergency department with a follow-up referral. The need for follow-up, as well as the timing and circumstances, are variable depending upon the specifics of your emergency department visit. If you don't have a primary care physician on staff, we will provide you with a referral. We always advise you to contact your personal physician following an emergency department visit to inform them of the circumstance of the visit and for follow-up with them and/or the need for any referrals to a consulting specialist. The emergency department will also refer you to a specialist when appropriate. This referral assures that you have the opportunity for follow-up care with a specialist. All of these measure are taken in an effort to provide you with optimal care, which includes your follow-up. Under all circumstances we always encourage you to contact your private physician who remains a resource for coordinating your care. When calling for follow-up care, please make the office aware that this follow-up is from your recent emergency room visit. If for any reason you are refused follow-up, please contact the [facility] Emergency Department at and asked to speak to the emergency department charge nurse. [facility] [address] [place] [id number] 1. Please take the Zofran as prescribed as needed for nausea. Take one tablet every 8 hours. Medication will dissolve in your mouth. 2. Follow-up with your primary caregiver in the next 1-2 days. Return to the ED as needed and as discussed. - My Orders Last 24 Hours: My Active Orders 11/17/17 11:46 CBC WITH AUTO DIFF [HEME] Stat 11/17/17 11:47 EKG Documentation Completion [RC] STAT COMPREHENSIVE METABOLIC PN,CMP [CHEM] Stat TROPONIN I [CHEM] Stat Sodium Chloride 0.9% [Saline Flush] 10 ml FLUSH ASDIRECTED PRN Sodium Chloride 0.9% [Saline Flush] 2.5 ml FLUSH ASDIRECTED PRN 11/17/17 11:53 Ondansetron [Zofran ODT] 8 mg PO ONETIME PRN - Assessment/Plan Last 24 Hours: My Active Orders 11/17/17 11:46 CBC WITH AUTO DIFF [HEME] Stat 11/17/17 11:47 EKG Documentation Completion [RC] STAT COMPREHENSIVE METABOLIC PN,CMP [CHEM] Stat TROPONIN I [CHEM] Stat Sodium Chloride 0.9% [Saline Flush] 10 ml FLUSH ASDIRECTED PRN Sodium Chloride 0.9% [Saline Flush] 2.5 ml FLUSH ASDIRECTED PRN 11/17/17 11:53 Ondansetron [Zofran ODT] 8 mg PO ONETIME PRN
== END 2017-11-17 12:36 | disposition home or self-care (01) ==
LOC: MW.ED 11:45
DX: R11.2 Nausea with vomiting, unspecified (principal); E78.00 Pure hypercholesterolemia, unspecified; I10 Essential (primary) hypertension; K21.9 Gastro-esophageal reflux disease without esophagitis; F41.9 Anxiety disorder, unspecified; F32.9 Major depressive disorder, single episode, unspecified; Z90.49 Acquired absence of other specified parts of digestive tract; Z88.6 Allergy status to analgesic agent; Z88.8 Allergy status to other drugs, medicaments and biological substances; Z88.2 Allergy status to sulfonamides; Z91.030 Bee allergy status; Z79.899 Other long term (current) drug therapy; Z86.73 Personal history of transient ischemic attack (TIA), and cerebral infarction without residual deficits
CPT/HCPCS: 82962; 93005; 99284; A9270; 99283

== ENCOUNTER 2018-03-31 12:46 | Emergency (ER) | payer MEDICARE, OTHER ==
[2018-03-31 13:04] VITALS: BP 135/77
--- NOTE | 2018-03-31 13:30 | EDM.PDOC ---
ED HPI GENERAL MEDICAL PROBLEM - General Chief Complaint: Skin Complaint Stated Complaint: SPIDER BITE Time Seen by Provider: 03/31/18 13:29 Source of Information: Reports: Patient History Limitations: Reports: No Limitations - History of Present Illness INITIAL COMMENTS - FREE TEXT/NARRATIVE: HISTORY AND PHYSICAL: History of present illness: 77 yo female with chief complaint of left lower quadrant skin rash 5 days. Patient states that approximately 5 days ago she was out in her garden and believes that she got a "spider bite". She noticed later on in the shower that there was some redness in the left lower quadrant area that she thought was initially a mosquito bite. Since then the redness has increased and there has been more pain and swelling. She has noted a little bit of drainage yellowish last night. She denies any associated fever, chills, nausea, vomiting, or other signs of systemic infection. On examination there is a area of erythema and induration approximately 6 cm x 3 cm with a area of ulceration centered 0.[address] [place]. Review of systems: As per history of present illness and below otherwise all systems reviewed and negative. Past medical history: As per history of present illness and as reviewed below otherwise noncontributory. Surgical history: As per history of present illness and as reviewed below otherwise noncontributory. Social history: No reported history of drug or alcohol abuse. Family history: As per history of present illness and as reviewed below otherwise noncontributory. Physical exam: See above H&P HEENT: Atraumatic, normocephalic, pupils reactive, negative for conjunctival pallor or scleral icterus, mucous membranes moist, throat clear, neck supple, nontender, trachea midline. Lungs: Clear to auscultation, breath sounds equal bilaterally, chest nontender. Heart: S1S2, regular, negative for clicks, rubs, or JVD. Abdomen: Soft, nondistended, nontender. Negative for masses or hepatosplenomegaly. Negative for costovertebral tenderness. Pelvis: Stable nontender. Genitourinary: Deferred. Rectal: Deferred. Extremities: Atraumatic, negative for cords or calf pain. Neurovascular unremarkable. Neuro: Awake, alert, oriented. Cranial nerves II through XII unremarkable. Cerebellum unremarkable. Motor and sensory unremarkable throughout. Exam nonfocal. Diagnostics: [] Therapeutics: I&D Clindamycin 150 mg by mouth every 6 hours 7 days Impression: Cellulitis with abscess Plan: Using 2 mL of 1% lidocaine area involved was adequately anesthetized. Using an 11 blade a 1 cm incision was made. Approximately 3 mL of purulent material was exuded from wound. Hemostasis was achieved. Patient was discharged with a prescription for clindamycin 450 mg by mouth every 6 hours 7 days. She was instructed to follow-up with her primary care provider Dr. Samaniego and return to emergency department if she had any new or worsening symptoms. Definitive disposition and diagnosis as appropriate pending reevaluation and review of above. Left Abdominal Pain Score (Numeric/FACES): 2 - Related Data Allergies Allergy/AdvReac Type Severity Reaction Status Date / Time acetaminophen Allergy Rash Verified 11/17/17 12:00 [From Excedrin Back & Body] aspirin Allergy Rash Verified 11/17/17 12:00 [From Excedrin Back & Body] calcium carbonate Allergy Rash Verified 11/17/17 12:00 [From Excedrin Back & Body] diclofenac Allergy Rash Verified 11/17/17 12:00 hydrocodone bitartrate Allergy Other Verified 11/17/17 12:00 [From [place]] naproxen sodium [From Aleve] Allergy Rash Verified 11/17/17 12:00 povidone-iodine Allergy Rash Verified 11/17/17 12:00 [From Betadine] soap [From Betadine] Allergy Rash Verified 11/17/17 12:00 Sulfa (Sulfonamide Allergy Cough Verified 11/17/17 12:00 Antibiotics) venom-honey bee Allergy Anaphylactic Verified 11/17/17 12:00 [bee venom (honey bee)] Shock Home Meds: Home Meds Losartan/Hydrochlorothiazide [Losartan-HCTZ 50-12.5 MG] 1 tab PO DAILY 12/13/15 [History] DULoxetine HCl [Cymbalta] 60 mg PO BID 06/19/17 [History] Desvenlafaxine [Khedezla] 50 mg PO DAILY 06/19/17 [History] LORazepam 1 tab PO ASDIRECTED PRN 06/19/17 [History] traMADol HCl [Tramadol HCl] 50 mg PO ASDIRECTED PRN 06/19/17 [History] Pantoprazole [ProTONIX] 40 mg PO ACBREAKFAST #30 tab.cr 06/21/17 [Rx] Carboxymethylcellulose Sodium [Refresh Celluvisc] 2 drop EYEBOTH DAILY 03/31/18 [History] Clopidogrel Bisulfate [Clopidogrel] 75 mg PO DAILY 03/31/18 [History] DULoxetine HCl [Duloxetine HCl] 60 mg PO BID 03/31/18 [History] Non-Formulary Medication [NF Drug] 1 tab PO DAILY 03/31/18 [History] Omeprazole 20 mg PO BID 03/31/18 [History] Past Medical History HEENT History: Reports: Glaucoma, Impaired Vision, Other (See Below) Other HEENT History: Refuses to give any information. 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 Musculoskeletal History: Reports: Arthritis, Fibromyalgia Neurological History: Reports: TIA, Other (See Below) Other Neuro History: hx TIA in May, 2011, hx surgery for brain tumor Psychiatric History: Reports: Anxiety, Depression Endocrine/Metabolic History: Reports: None Hematologic History: Reports: Anemia Immunologic History: Reports: None Oncologic (Cancer) History: Reports: None Dermatologic History: Reports: Eczema Other Dermatologic History: eczema to feet - Infectious Disease History Infectious Disease History: Reports: Chicken Pox - Past Surgical History Head Surgeries/Procedures: Reports: Other (See Below) Cardiovascular Surgical History: Reports: None Respiratory Surgical History: Reports: None GI Surgical History: Reports: Appendectomy, Cholecystectomy, Colon, Colonoscopy , Other (See Below) Other GI Surgeries/Procedures: hx ventral heria repair, repair of paraesophageal hiatus hernia, hx parial colectomy (sigmoidectomy) Female Surgical History: Reports: Hysterectomy Other Female Surgeries/Procedures: bladder repair & rectocele repair Endocrine Surgical History: Reports: None Neurological Surgical History: Reports: None Musculoskeletal Surgical History: Reports: Other (See Below) Other Musculoskeletal Surgeries/Procedures:: right hand surgery Oncologic Surgical History: Reports: None Dermatological Surgical History: Reports: None Social & Family History - Family History Family Medical History: Noncontributory - Tobacco Use Smoking Status *Q: Never Smoker - Caffeine Use Caffeine Use: Reports: Coffee - Recreational Drug Use Recreational Drug Use: No ED ROS GENERAL - Review of Systems Review Of Systems: ROS reveals no pertinent complaints other than HPI. ED EXAM, SKIN/RASH Exam: See Below Course - Vital Signs Last Recorded V/S: Last Vital Signs Temp 96.9 F 03/31/18 12:54 Pulse 75 03/31/18 12:54 Resp 17 03/31/18 12:54 BP 135/77 03/31/18 12:54 Pulse Ox 97 03/31/18 12:54 - Orders/Labs/Meds Meds: Medications Discontinued Medications Generic Name Dose Route Start Last Admin Trade Name Nora PRN Reason Stop Dose Admin Bacitracin 1 dose 03/31/18 14:12 Bacitracin Oint 1 Gm TOP 03/31/18 14:13 ONETIME ONE Lidocaine HCl 5 ml 03/31/18 13:35 03/31/18 13:55 Xylocaine-Mpf 1% INJECT 03/31/18 13:36 5 ml ONETIME ONE Administration Departure - Departure Time of Disposition: 14:21 Disposition: Home, Self-Care 01 Condition: Good Clinical Impression: Cellulitis and abscess of trunk - Discharge Information Referrals: PCP,None [Primary Care Provider] - Forms: ED Department Discharge Additional Instructions: My general discharge The following information is given to patients seen in the emergency department who are being discharged to home. This information is to outline your options for follow-up care. We provide all patients seen in our emergency department with a follow-up referral. The need for follow-up, as well as the timing and circumstances, are variable depending upon the specifics of your emergency department visit. If you don't have a primary care physician on staff, we will provide you with a referral. We always advise you to contact your personal physician following an emergency department visit to inform them of the circumstance of the visit and for follow-up with them and/or the need for any referrals to a consulting specialist. The emergency department will also refer you to a specialist when appropriate. This referral assures that you have the opportunity for follow-up care with a specialist. All of these measure are taken in an effort to provide you with optimal care, which includes your follow-up. Under all circumstances we always encourage you to contact your private physician who remains a resource for coordinating your care. When calling for follow-up care, please make the office aware that this follow-up is from your recent emergency room visit. If for any reason you are refused follow-up, please contact the [facility] Emergency Department at and asked to speak to the emergency department charge nurse. [address] [address] Follow-up with primary care provider on Monday as we discussed. Take antibiotics as prescribed. Return emergency permanent any new or worsening symptoms.
[2018-03-31] MEDS ORDERED: Bacitracin Oint 1 GM U/D Packet TOP ONE (14:12)
== END 2018-03-31 14:39 | disposition home or self-care (01) ==
LOC: MW.ED 12:46
DX: L03.311 Cellulitis of abdominal wall (principal); L02.211 Cutaneous abscess of abdominal wall; I10 Essential (primary) hypertension; K21.9 Gastro-esophageal reflux disease without esophagitis; E78.00 Pure hypercholesterolemia, unspecified; Z88.6 Allergy status to analgesic agent; Z88.2 Allergy status to sulfonamides; Z91.030 Bee allergy status; Z88.8 Allergy status to other drugs, medicaments and biological substances; Z79.899 Other long term (current) drug therapy
CPT/HCPCS: 10060; 99282

== ENCOUNTER 2018-11-13 06:37 | Day surgery (SDC) | payer MEDICARE, OTHER ==
[~2018-11-13 06:37] MED LIST changes: +Sodium Chloride 0.9% 10 ML SDV IV PRN
[2018-11-13] MEDS ORDERED: Propofol 200 MG/20 ML SDV ONE (07:07)
[2018-11-13] MEDS ORDERED: Midazolam 1 MG/ML 2 ML SDV ONE (07:08)
[2018-11-13] MEDS ORDERED: fentaNYL 100 MCG/2 ML SDV ONE (07:08)
--- NOTE | 2018-11-13 07:27 | PCM.PREANE ---
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 in [place]" Family History of Anesthesia Reaction: No Transfusion History: No Prior Transfusion(s) Intubation History: Unknown - Review of Systems General: No Symptoms Pulmonary: No Symptoms Cardiovascular: No Symptoms Gastrointestinal: Hematochezia, Other (h/o multiple polyps) Neurological: No Symptoms Other: Reports: None - Physical Assessment O2 Sat by Pulse Oximetry: 96 Respiratory Rate: 16 Vital Signs: Last Vital Signs Temp 36.4 C 11/13/18 07:17 Pulse 72 11/13/18 07:17 Resp 16 11/13/18 07:17 BP 115/62 11/13/18 07:17 Pulse Ox 96 11/13/18 07:17 Height: 1.55 m Weight: 73.028 kg ASA Class: 3 Mental Status: Alert & Oriented x3 Airway Class: Mallampati = 2 Dentition: Reports: Normal Dentition, Bridge (upper and lower on tje sides) Thyro-Mental Finger Breadths: 3 Mouth Opening Finger Breadths: 3 ROM/Head Extension: Full Lungs: Clear to Auscultation, Normal Respiratory Effort Cardiovascular: Regular Rate, Regular Rhythm - Allergies Allergies/Adverse Reactions: Allergies Allergy/AdvReac Type Severity Reaction Status Date / Time acetaminophen Allergy Rash Verified 11/08/18 15:21 [From Excedrin Back & Body] aspirin Allergy Rash Verified 11/08/18 15:21 [From Excedrin Back & Body] calcium carbonate Allergy Rash Verified 11/08/18 15:21 [From Excedrin Back & Body] diclofenac Allergy Rash Verified 11/08/18 15:21 hydrocodone bitartrate Allergy Rash Verified 11/08/18 15:24 [From [place]] naproxen sodium [From Aleve] Allergy Rash Verified 11/08/18 15:21 povidone-iodine Allergy Shortness Verified 11/08/18 15:24 [From Betadine] of Breath soap [From Betadine] Allergy Shortness Verified 11/08/18 15:24 of Breath Sulfa (Sulfonamide Allergy Shortness Verified 11/08/18 15:24 Antibiotics) of Breath venom-honey bee Allergy Anaphylactic Verified 11/08/18 15:21 [bee venom (honey bee)] Shock - Blood Blood Available: No - Anesthesia Plan Pre-Op Medication Ordered: None - Acknowledgements Anesthesia Type Planned: MAC Pt an Appropriate Candidate for the Planned Anesthesia: Yes Alternatives and Risks of Anesthesia Discussed w Pt/Guardian: Yes Pt/Guardian Understands and Agrees with Anesthesia Plan: Yes PreAnesthesia Questionnaire HEENT History: Reports: Allergic Rhinitis, Glaucoma, Impaired Vision, Other ( See Below) Other HEENT History: wears glasses, permanent bridge Cardiovascular History: Reports: High Cholesterol, Hypertension Respiratory History: Reports: None Gastrointestinal History: Reports: Chronic Constipation, Colon Polyp (multiple ( 13)), GERD, Hiatal Hernia, Other (See Below) Other Gastrointestinal History: hx gastric ulcer Genitourinary History: Reports: 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: Musculoskeletal History: Reports: Arthritis, Back Pain, Chronic, Fibromyalgia, Osteoporosis Neurological History: Reports: TIA, Other (See Below) Other Neuro History: hx TIA in May, 2011, hx surgery for brain tumor 2012 Psychiatric History: Reports: Anxiety, Depression Endocrine/Metabolic History: Reports: Obesity/BMI 30+ Hematologic History: Reports: None Immunologic History: Reports: None Oncologic (Cancer) History: Reports: None Dermatologic History: Reports: Eczema Other Dermatologic History: eczema to feet - Infectious Disease History Infectious Disease History: Reports: Chicken Pox - Past Surgical History Head Surgeries/Procedures: Reports: Other (See Below) HEENT Surgical History: Reports: Cataract Surgery, Naso-Sinus Surgery Other HEENT Surgeries/Procedures: "have nose bleeds often" Cardiovascular Surgical History: Reports: None Respiratory Surgical History: Reports: None GI Surgical History: Reports: Appendectomy, Cholecystectomy, Colon, Colonoscopy , EGD, Other (See Below) Other GI Surgeries/Procedures: hx ventral heria repair, repair of paraesophageal hiatus hernia, hx parial colectomy (sigmoidectomy) Female Surgical History: Reports: Hysterectomy, Tubal Ligation Other Female Surgeries/Procedures: bladder repair & rectocele repair Endocrine Surgical History: Reports: None Neurological Surgical History: Reports: None Musculoskeletal Surgical History: Reports: Other (See Below) Other Musculoskeletal Surgeries/Procedures:: right hand surgery for infection Oncologic Surgical History: Reports: None Dermatological Surgical History: Reports: None - SUBSTANCE USE Smoking Status *Q: Never Smoker Recreational Drug Use History: No - HOME MEDS Home Medications: Home Meds Losartan/Hydrochlorothiazide [Losartan-HCTZ 50-12.5 MG] 1 tab PO DAILY 12/13/15 [History] DULoxetine HCl [Cymbalta] 60 mg PO BID 06/19/17 [History] Desvenlafaxine [Khedezla] 10 mg PO DAILY 06/19/17 [History] LORazepam 1 tab PO ASDIRECTED PRN 06/19/17 [History] Clopidogrel Bisulfate [Clopidogrel] 75 mg PO DAILY 03/31/18 [History] DULoxetine HCl [Duloxetine HCl] 60 mg PO BID 03/31/18 [History] Omeprazole 20 mg PO BID 03/31/18 [History] L.acidoph,Paracasei, B.lactis [Probiotic] 1 tab PO DAILY 11/08/18 [History] Latanoprost/Pf [Latanoprost 0.005% Eye Drop] 1 drop EYEBOTH BEDTIME 11/08/18 [ History] traMADol [Ultram] 50 mg PO ASDIRECTED PRN 11/08/18 [History] - CURRENT (IN HOUSE) MEDS Current Meds: Current Medications Lactated Ringer's (Ringers, Lactated) 1,000 mls @ 125 mls/hr IV ASDIRECTED [place] Last Admin: 11/13/18 07:20 Dose: 125 mls/hr Sodium Chloride (Saline Flush) 10 ml FLUSH ASDIRECTED PRN PRN Reason: Keep Vein Open Sodium Chloride (Saline Flush) 2.5 ml FLUSH ASDIRECTED PRN PRN Reason: Keep Vein Open Sodium Chloride (Saline Flush) 10 ml FLUSH ASDIRECTED PRN PRN Reason: Keep Vein Open Sodium Chloride (Saline Flush) 2.5 ml FLUSH ASDIRECTED PRN PRN Reason: Keep Vein Open Sodium Chloride (Normal Saline) 10 ml IV ASDIRECTED PRN PRN Reason: IV Use Discontinued Medications Fentanyl (Sublimaze) Confirm Administered Dose 100 mcg .ROUTE .STK-MED ONE Stop: 11/13/18 07:09 Midazolam HCl (Versed 1 Mg/Ml) Confirm Administered Dose 2 mg .ROUTE .STK-MED ONE Stop: 11/13/18 07:09 Propofol (Diprivan 20 Ml) Confirm Administered Dose 400 mg .ROUTE .STK-MED ONE Stop: 11/13/18 07:08
--- NOTE | 2018-11-13 09:26 | PCM.OPNOTE ---
- General Post-Op/Procedure Note Date of Surgery/Procedure: 11/13/18 Operative Procedure(s): Diagnostic colonoscopy Findings: Ascending colon polyp x 2, transverse colon polyp x 1, descending colon polyp x 1 Pre Op Diagnosis: History of colon polyps Post-Op Diagnosis: Ascending colon polyp x 2, transverse colon polyp x 1, descending colon polyp x 1 Anesthesia Technique: MAC Primary Surgeon: Maricarmen Matthew Condition: Good
--- NOTE | 2018-11-13 09:27 | PCM.POSTAN ---
POST ANESTHESIA ASSESSMENT - MENTAL STATUS Mental Status: Alert, Oriented - RESPIRATORY Respiratory Status: Respiratory Rate WNL, Airway Patent, O2 Saturation Stable - CARDIOVASCULAR CV Status: Pulse Rate WNL, Blood Pressure Stable - GASTROINTESTINAL GI Status: No Symptoms - PAIN Pain Score: 0 - POST OP HYDRATION Hydration Status: Adequate & Stable - OBSERVATIONS Free Text/Narrative:: No anesthesia problems, patient skipped recovery room phase of postoperative care
[2018-11-13 09:38] VITALS: BP 104/58
--- NOTE | 2018-11-14 19:04 | OR ---
SURGEON: HUBER SANCHEZ MD DATE OF PROCEDURE: 11/13/2018 PREOPERATIVE DIAGNOSIS: History of colon polyps. POSTOPERATIVE DIAGNOSES: 1. Ascending colon polyps x2. 2. Transverse colon polyp x1. 3. Descending colon polyp x1. PROCEDURE PERFORMED: Diagnostic colonoscopy with biopsy. ANESTHESIA: MAC. INSTRUMENT USED: Olympus colonoscope. EXTENT OF EXAM: To the cecum. PREPARATION: Good. LIMITATIONS: None. INDICATION FOR EXAMINATION: The patient is a 78-year-old female who underwent a colonoscopy last year and was found to have multiple polyps throughout the colon. Given this, I decided to proceed with a repeat colonoscopy 1 year later. I explained the procedure, expected perioperative course, and the risks including bleeding, infection, and damage to the surrounding structures including perforation. The patient verbalized understanding and wishes to proceed. PROCEDURE IN DETAIL: The patient was brought to the endoscopy suite and placed in a left lateral decubitus position. A time-out was completed verifying the patient's name, age, date of , allergies, and procedure to be performed. Monitored anesthesia care was induced, and continuous oxygen was provided via nasal cannula throughout the procedure. After adequate sedation was achieved, a digital rectal exam was performed. This exam was within normal limits. A well- lubricated colonoscope was inserted in the rectum and advanced under direct visualization to the level of the cecum. The cecum was identified by both visual and anatomic landmarks. A photograph was taken of the cecal cap. However, I was unable to retroflex the scope within the cecum due to looping of the scope more proximally. The scope was straightened out and fully withdrawn while examining the color, texture, anatomy, and integrity of the mucosa from the cecum to the anal canal. The patient was found to have several polyps throughout the colon. There were 2 in the ascending colon, 1 in the transverse colon, and 1 in the descending colon. These were removed and sent to pathology. The scope was then brought into the rectum and retroflexed to allow visualization of the anal canal opening. This appeared normal and a photograph was taken. Scope was straightened out and fully withdrawn. The cecum to anus time was 31 minutes. The patient tolerated the procedure well and was taken to PACU in stable condition. ENDOSCOPIC DIAGNOSES: 1. Ascending colon polyps x2. 2. Transverse colon polyp x1. 3. Descending colon polyp x1. RECOMMENDATIONS: Follow up in clinic in 2 weeks. CRUZ DURHAM /[id number]
== END 2018-11-13 09:41 | disposition home or self-care (01) ==
LOC: MW.SDS 06:37
PROVIDERS: ATTEND Surgery
DX: D12.2 Benign neoplasm of ascending colon (principal); D12.3 Benign neoplasm of transverse colon; D12.4 Benign neoplasm of descending colon; Z86.010 Personal history of colon polyps; Z80.0 Family history of malignant neoplasm of digestive organs; I10 Essential (primary) hypertension; F41.9 Anxiety disorder, unspecified; N95.2 Postmenopausal atrophic vaginitis; K21.9 Gastro-esophageal reflux disease without esophagitis; Z86.73 Personal history of transient ischemic attack (TIA), and cerebral infarction without residual deficits; Z79.891 Long term (current) use of opiate analgesic; Z79.899 Other long term (current) drug therapy; Z88.5 Allergy status to narcotic agent; Z88.2 Allergy status to sulfonamides; Z91.030 Bee allergy status; Z88.6 Allergy status to analgesic agent
CPT/HCPCS: 45380; J2704; J3010; J7120; J2250

== ENCOUNTER 2019-04-30 08:19 | Day surgery (SDC) | payer MEDICARE, OTHER ==
--- NOTE | 2019-04-30 09:36 | PCM.PREANE ---
Preanesthetic Assessment - Anesthesia/Transfusion/Family Hx Anesthesia History: Prior Anesthesia Reaction Other Type of Anesthesia Reaction Comment: was told she had a stroke during surgery-no movement or vision on right lori Family History of Anesthesia Reaction: No Transfusion History: No Prior Transfusion(s) Intubation History: Unknown - Review of Systems General: No Symptoms Pulmonary: No Symptoms Cardiovascular: No Symptoms Gastrointestinal: Hematochezia, Other (h/o multiple colon polyps 10/26) Neurological: No Symptoms Other: Reports: None - Physical Assessment NPO Status Date: 04/30/19 NPO Status Time: 06:00 Vital Signs: Last Vital Signs Temp 36.0 C 04/30/19 08:40 Pulse 87 04/30/19 08:40 Resp 16 04/30/19 08:40 BP 123/68 04/30/19 08:40 Pulse Ox 97 04/30/19 08:40 Height: 5 ft 1 in Weight: 70.307 kg ASA Class: 3 Mental Status: Alert & Oriented x3 Airway Class: Mallampati = 2 Dentition: Reports: Normal Dentition, Bridge (upper and lower (sides)) Thyro-Mental Finger Breadths: 3 Mouth Opening Finger Breadths: 3 ROM/Head Extension: Full Lungs: Clear to Auscultation, Normal Respiratory Effort Cardiovascular: Regular Rate, Regular Rhythm - Allergies Allergies/Adverse Reactions: Allergies Allergy/AdvReac Type Severity Reaction Status Date / Time acetaminophen Allergy Rash Verified 04/26/19 10:47 [From Excedrin Back & Body] aspirin Allergy Rash Verified 04/26/19 10:47 [From Excedrin Back & Body] calcium carbonate Allergy Rash Verified 04/26/19 10:47 [From Excedrin Back & Body] diclofenac Allergy Rash Verified 04/26/19 10:47 hydrocodone bitartrate Allergy Rash Verified 04/26/19 10:47 [From [place]] ibuprofen Allergy Shortness Verified 04/26/19 10:47 of Breath naproxen sodium [From Aleve] Allergy Rash Verified 04/26/19 10:47 povidone-iodine Allergy Shortness Verified 04/26/19 10:47 [From Betadine] of Breath soap [From Betadine] Allergy Shortness Verified 04/26/19 10:47 of Breath Sulfa (Sulfonamide Allergy Shortness Verified 04/26/19 10:47 Antibiotics) of Breath venom-honey bee Allergy Anaphylactic Verified 04/26/19 10:47 [bee venom (honey bee)] Shock - Blood Blood Available: No - Anesthesia Plan Pre-Op Medication Ordered: None - Acknowledgements Anesthesia Type Planned: MAC Pt an Appropriate Candidate for the Planned Anesthesia: Yes Alternatives and Risks of Anesthesia Discussed w Pt/Guardian: Yes Pt/Guardian Understands and Agrees with Anesthesia Plan: Yes PreAnesthesia Questionnaire HEENT History: Reports: Allergic Rhinitis, Cataract, Glaucoma, Other (See Below) Other HEENT History: wears glasses- hx of double vision, has upper permanent dental bridge Cardiovascular History: Reports: High Cholesterol, Hypertension Respiratory History: Reports: None Gastrointestinal History: Reports: Colon Polyp, Diverticulosis, GERD, Hemorrhoids, Hiatal Hernia, Other (See Below) Other Gastrointestinal History: hx of dysphagia Genitourinary History: Reports: None [employer] History: Reports: Musculoskeletal History: Reports: Arthritis, Back Pain, Chronic, Fracture Other Musculoskeletal History: hx of fx finger Neurological History: Reports: 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), Migraines, Seizure Other Neuro History: no migraines recently, 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- none since Psychiatric History: Reports: Anxiety, Depression Endocrine/Metabolic History: Reports: Obesity/BMI 30+ Hematologic History: Reports: None Immunologic History: Reports: None Oncologic (Cancer) History: Reports: None Dermatologic History: Reports: Eczema Other Dermatologic History: eczema to feet - Infectious Disease History Infectious Disease History: Reports: Chicken Pox - Past Surgical History Head Surgeries/Procedures: Reports: Craniotomy (for brain tumor at [facility]) HEENT Surgical History: Reports: Cataract Surgery, Naso-Sinus Surgery Other HEENT Surgeries/Procedures: "have nose bleeds often" Cardiovascular Surgical History: Reports: None Respiratory Surgical History: Reports: None GI Surgical History: Reports: Appendectomy, Cholecystectomy, Colon, Colonoscopy , EGD, Hernia, Inguinal, Other (See Below) Other GI Surgeries/Procedures: hx of Paraesophageal hernia repair- states currently has a recurrent hiatial hernia, hx of ventral hernia repair, sigmoid colon resection due to diverticulosis Female Surgical History: Reports: Hysterectomy, Tubal Ligation, Other (See Below) Other Female Surgeries/Procedures: hx of bladder repair x2 Endocrine Surgical History: Reports: None Neurological Surgical History: Reports: None Musculoskeletal Surgical History: Reports: Other (See Below) Other Musculoskeletal Surgeries/Procedures:: right hand surgery for infection Oncologic Surgical History: Reports: None Dermatological Surgical History: Reports: None - SUBSTANCE USE Smoking Status *Q: Never Smoker Recreational Drug Use History: No - HOME MEDS Home Medications: Home Meds Losartan/Hydrochlorothiazide [Losartan-HCTZ 50-12.5 MG] 0.5 tab PO DAILY [History] Desvenlafaxine [Khedezla] 50 mg PO DAILY 06/19/17 [History] LORazepam 1 tab PO ASDIRECTED PRN 06/19/17 [History] Clopidogrel Bisulfate [Clopidogrel] 75 mg PO DAILY 03/31/18 [History] DULoxetine HCl [Duloxetine HCl] 60 mg PO DAILY 03/31/18 [History] L.acidoph,Paracasei, B.lactis [Probiotic] 1 tab PO DAILY 11/08/18 [History] Latanoprost/Pf [Latanoprost 0.005% Eye Drop] 1 drop EYEBOTH BEDTIME 11/08/18 [ History] Timolol [Betimol] 0 drop EYEBOTH DAILY 04/26/19 [History] cloNIDine [Catapres] 0.1 mg PO BEDTIME 04/26/19 [History] - CURRENT (IN HOUSE) MEDS Current Meds: Current Medications Lactated Ringer's (Ringers, Lactated) 1,000 mls @ 125 mls/hr IV ASDIRECTED MALCOLM Last Admin: 04/30/19 08:45 Dose: 125 mls/hr Sodium Chloride (Saline Flush) 10 ml FLUSH ASDIRECTED PRN PRN Reason: Keep Vein Open Sodium Chloride (Saline Flush) 2.5 ml FLUSH ASDIRECTED PRN PRN Reason: Keep Vein Open Sodium Chloride (Saline Flush) 10 ml FLUSH ASDIRECTED PRN PRN Reason: Keep Vein Open Sodium Chloride (Saline Flush) 2.5 ml FLUSH ASDIRECTED PRN PRN Reason: Keep Vein Open Sodium Chloride (Normal Saline) 10 ml IV ASDIRECTED PRN PRN Reason: IV Use
[2019-04-30] MEDS ORDERED: Propofol 200 MG/20 ML SDV ONE (11:11)
[2019-04-30 12:26] VITALS: BP 140/64; PULSE 71
--- NOTE | 2019-04-30 12:47 | PCM48HPAN ---
Post Anesthesia Note - EVALUATION WITHIN 48HRS OF ANESTHETIC Vital Signs in Normal Range: Yes Patient Participated in Evaluation: Yes Respiratory Function Stable: Yes Airway Patent: Yes Cardiovascular Function Stable: Yes Hydration Status Stable: Yes Pain Control Satisfactory: Yes Nausea and Vomiting Control Satisfactory: Yes Mental Status Recovered: Yes Vital Signs: Last Vital Signs Temp 36.4 C 04/30/19 12:15 Pulse 71 04/30/19 12:15 Resp 16 04/30/19 12:15 BP 140/64 04/30/19 12:15 Pulse Ox 97 04/30/19 12:15 - COMMENTS/OBSERVATIONS Free Text/Narrative:: no anesthesia problems
--- NOTE | 2019-04-30 12:47 | PCM.POSTAN ---
POST ANESTHESIA ASSESSMENT - MENTAL STATUS Mental Status: Alert, Oriented - VITAL SIGNS Vital Signs: Last Vital Signs Temp 36.4 C 04/30/19 12:15 Pulse 71 04/30/19 12:15 Resp 16 04/30/19 12:15 BP 140/64 04/30/19 12:15 Pulse Ox 97 04/30/19 12:15 - RESPIRATORY Respiratory Status: Respiratory Rate WNL, Airway Patent, O2 Saturation Stable - CARDIOVASCULAR CV Status: Pulse Rate WNL, Blood Pressure Stable - GASTROINTESTINAL GI Status: No Symptoms - PAIN Pain Score: 0 - POST OP HYDRATION Hydration Status: Adequate & Stable - OBSERVATIONS Free Text/Narrative:: no anesthesia problems
--- NOTE | 2019-04-30 13:56 | PCM.OPNOTE ---
- General Post-Op/Procedure Note Date of Surgery/Procedure: 04/30/19 Operative Procedure(s): Colonoscopy with biopsy Findings: 1 transverse colon polyp, 2 sigmoid colon polyps Pre Op Diagnosis: Bright red bleeding per rectum Post-Op Diagnosis: trasnverse colon polyp, sigmoid colon polyp Anesthesia Technique: MAC Primary Surgeon: Maricarmen Matthew Condition: Good Free Text/Narrative:: Intake & Output 04/29/19 04/30/19 04/30/19 22:59 06:59 14:59 Intake Total 700 Balance 700
--- NOTE | 2019-04-30 17:04 | OR ---
SURGEON: MARICARMEN MATTHEW MD DATE OF PROCEDURE: 04/30/2019 PREOPERATIVE DIAGNOSIS: Bright red bleeding per rectum. POSTOPERATIVE DIAGNOSES: 1. Transverse colon polyp. 2. Sigmoid colon polyps x2. PROCEDURE PERFORMED: Diagnostic colonoscopy. PRIMARY SURGEON: Maricarmen Matthew MD. ANESTHESIA: MAC. INSTRUMENT USED: Olympus colonoscope. EXTENT OF EXAM: To the cecum. PREPARATION: Good. LIMITATIONS: None. INDICATION FOR EXAMINATION: Patient is a 78-year-old female with a history of multiple colon polyps. Recently, she has been having increased bright red bleeding per rectum with bowel movements. Given her history of multiple colon polyps, the decision was made to proceed with a diagnostic colonoscopy. I explained the procedure, expected perioperative course, and risks including bleeding, infection, or damage to surrounding structures including perforation. The patient verbalized understanding and wishes to proceed. PROCEDURE IN DETAIL: The patient was brought to the endoscopy suite and placed in the left lateral decubitus position. A time-out was completed verifying the patient's name, age, date of , allergies, and procedure to be performed. Monitored anesthesia care was induced and continuous oxygen was provided via nasal cannula throughout the procedure. After adequate sedation was achieved, a digital rectal exam was performed. This exam was within normal limits. A well-lubricated colonoscope was inserted in the rectum and advanced under direct visualization to the level of cecum. Cecum was identified by both visual and anatomic landmarks. A photograph was taken of the cecal cap, however, I was unable to retroflex the scope within the cecum due to looping of the scope more proximally. The scope was then fully withdrawn while examining the color, texture, anatomy, and integrity of the mucosa from the cecum to the anal canal. This was found to have 1 small sessile polyp in the transverse colon. This was removed in piecemeal fashion using a cold biopsy forceps. In the distal sigmoid colon, she was noted to have two more similar-appearing polyps. These were removed in similar fashion. The scope was then brought in the rectum and retroflexed to allow visualization of the anal canal opening. This appeared normal and a photograph was taken. Scope was then straightened out and fully withdrawn. The cecum to anus time was 9 minutes. The patient tolerated the procedure well and was transferred to the PACU in stable condition. ENDOSCOPIC DIAGNOSES: 1. Transverse colon polyp. 2. Sigmoid colon polyps x2. RECOMMENDATIONS: Follow up in clinic in 2 weeks. CRUZ / CISCOL /[id number]
== END 2019-04-30 12:26 | disposition home or self-care (01) ==
LOC: MW.SDS 08:19
PROVIDERS: ATTEND Surgery
DX: K62.5 Hemorrhage of anus and rectum (principal); D12.3 Benign neoplasm of transverse colon; K63.5 Polyp of colon; M19.90 Unspecified osteoarthritis, unspecified site; E78.5 Hyperlipidemia, unspecified; K21.9 Gastro-esophageal reflux disease without esophagitis; I10 Essential (primary) hypertension; G43.909 Migraine, unspecified, not intractable, without status migrainosus; M81.0 Age-related osteoporosis without current pathological fracture; Z88.8 Allergy status to other drugs, medicaments and biological substances; Z88.6 Allergy status to analgesic agent; Z88.5 Allergy status to narcotic agent; Z88.2 Allergy status to sulfonamides; Z79.02 Long term (current) use of antithrombotics/antiplatelets
CPT/HCPCS: 45378; J2704; J7120; 88305

== ENCOUNTER 2020-01-27 09:32 | Inpatient (IN) | payer MEDICARE, OTHER ==
[2020-01-27] MEDS ORDERED: Sodium Chloride 0.9% 10 ML Syringe FLUSH PRN (09:42)
[2020-01-27] MEDS ORDERED: Sodium Chloride 0.9% 2.5 ML Syringe FLUSH PRN (09:42)
[2020-01-27] MEDS ORDERED: Ketorolac 15 MG/ML SDV IVPUSH ONE (09:45)
[2020-01-27] MEDS ORDERED: Sodium Chloride 0.9% 1,000 ML IV ONE (09:45)
[2020-01-27] MEDS ORDERED: Ondansetron 4 MG/2 ML SDV IVPUSH ONE (09:45)
--- NOTE | 2020-01-27 10:00 | EDM.PDOC ---
ED HPI GENERAL MEDICAL PROBLEM - General Chief Complaint: Gastrointestinal Problem Stated Complaint: COVID Time Seen by Provider: 01/27/20 09:44 - History of Present Illness INITIAL COMMENTS - FREE TEXT/NARRATIVE: History of present illness: 79-year-old female brought by EMS presenting with nausea, vomiting, diarrhea and difficulty breathing. Per patient she had a COVID positive test about 8 days ago. Spouse also has COVID. Has been sick for the last 8 to 10 days, symptoms worsened 3 days ago, but she started vomiting today. Did also note some black- colored stool/diarrhea. Review of systems: As per history of present illness and below otherwise all systems reviewed and negative. Past medical history: As per history of present illness and as reviewed below otherwise noncontributory. Hypertension Surgical history: As per history of present illness and as reviewed below otherwise noncontributory. Social history: No reported history of drug or alcohol abuse. No tobacco Family history: As per history of present illness and as reviewed below otherwise noncontributory. Physical exam: GEN: no acute distress though patient appears pale and uncomfortable HEENT: Atraumatic, normocephalic, mucous membranes dry Neck: supple, nontender, trachea midline. Lungs: No respiratory distress. O2 saturation 96 to 97% on room air Heart: RRR Abdomen: Soft, nondistended, nontender. Back: nontender Extremities: Atraumatic. Neurovascularly intact. Neuro: Awake, alert, oriented. Neuro Exam nonfocal. Skin: warm, dry, no lesions Diagnostics: Labs: CT scan Therapeutics: IV fluids, Toradol, Zofran MDM: Impression: [] Plan: [] Definitive disposition and diagnosis as appropriate pending reevaluation and review of above. neck and shoulders Pain Score (Numeric/FACES): 8 - Related Data Allergies Allergy/AdvReac Type Severity Reaction Status Date / Time acetaminophen Allergy Rash Verified 01/27/20 10:03 [From Excedrin Back & Body] aspirin Allergy Rash Verified 01/27/20 10:03 [From Excedrin Back & Body] calcium carbonate Allergy Rash Verified 01/27/20 10:03 [From Excedrin Back & Body] diclofenac Allergy Rash Verified 01/27/20 10:03 hydrocodone bitartrate Allergy Rash Verified 01/27/20 10:03 [From [place]] ibuprofen Allergy Shortness Verified 01/27/20 10:03 of Breath naproxen sodium [From Aleve] Allergy Rash Verified 01/27/20 10:03 povidone-iodine Allergy Shortness Verified 01/27/20 10:03 [From Betadine] of Breath soap [From Betadine] Allergy Shortness Verified 01/27/20 10:03 of Breath Sulfa (Sulfonamide Allergy Shortness Verified 01/27/20 10:03 Antibiotics) of Breath venom-honey bee Allergy Anaphylactic Verified 01/27/20 10:03 [bee venom (honey bee)] Shock Home Meds: Home Meds LORazepam 1 tab PO BID PRN 06/19/17 [History] Clopidogrel Bisulfate [Clopidogrel] 75 mg PO DAILY 03/31/18 [History] DULoxetine HCl [Duloxetine HCl] 120 mg PO DAILY 03/31/18 [History] Latanoprost/Pf [Latanoprost 0.005% Eye Drop] 1 drop EYEBOTH BEDTIME 11/08/18 [History] Timolol [Betimol] 1 drop EYEBOTH DAILY 04/26/19 [History] cloNIDine [Catapres] 0.1 mg PO BEDTIME 04/26/19 [History] Escitalopram [Lexapro] 10 mg PO DAILY 01/27/20 [History] hydroCHLOROthiazide [Hydrochlorothiazide] 12.5 mg PO DAILY 01/27/20 [History] Past Medical History HEENT History: Reports: Allergic Rhinitis, Cataract, Glaucoma, Other (See Below) Other HEENT History: wears glasses- hx of double vision, has upper permanent dental bridge Cardiovascular History: Reports: High Cholesterol, Hypertension Respiratory History: Reports: None Gastrointestinal History: Reports: Colon Polyp, Diverticulosis, GERD, Hemorrhoids, Hiatal Hernia, Other (See Below) Other Gastrointestinal History: hx of dysphagia Genitourinary History: Reports: None [employer] History: Reports: Musculoskeletal History: Reports: Arthritis, Back Pain, Chronic, Fracture Other Musculoskeletal History: hx of fx finger Neurological History: Reports: 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), Migraines, Seizure Other Neuro History: no migraines recently, 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- none since Psychiatric History: Reports: Anxiety, Depression Endocrine/Metabolic History: Reports: Obesity/BMI 30+ Hematologic History: Reports: None Immunologic History: Reports: None Oncologic (Cancer) History: Reports: None Dermatologic History: Reports: Eczema Other Dermatologic History: eczema to feet - Infectious Disease History Infectious Disease History: Reports: Chicken Pox - Past Surgical History Head Surgeries/Procedures: Reports: Craniotomy (for brain tumor at [facility] [place]) HEENT Surgical History: Reports: Cataract Surgery, Naso-Sinus Surgery Other HEENT Surgeries/Procedures: "have nose bleeds often" Cardiovascular Surgical History: Reports: None Respiratory Surgical History: Reports: None GI Surgical History: Reports: Appendectomy, Cholecystectomy, Colon, Colonoscopy, EGD, Hernia, Inguinal, Other (See Below) Other GI Surgeries/Procedures: hx of Paraesophageal hernia repair- states currently has a recurrent hiatial hernia, hx of ventral hernia repair, sigmoid colon resection due to diverticulosis Female Surgical History: Reports: Hysterectomy, Tubal Ligation, Other (See Below) Other Female Surgeries/Procedures: hx of bladder repair x2 Endocrine Surgical History: Reports: None Neurological Surgical History: Reports: None Musculoskeletal Surgical History: Reports: Other (See Below) Other Musculoskeletal Surgeries/Procedures:: right hand surgery for infection Oncologic Surgical History: Reports: None Dermatological Surgical History: Reports: None Social & Family History - Family History Family Medical History: Noncontributory - Caffeine Use Caffeine Use: Reports: Coffee ED ROS GENERAL - Review of Systems Review Of Systems: See Below (See HPI) ED EXAM, GI/ABD - Physical Exam Exam: See Below (See HPI) EKG INTERPRETATION EKG Interpretation Comments: EKG at 9:43 AM, sinus rhythm, rate 75, no acute ischemia or STEMI. Interpreted by me. Course - Vital Signs Text/Narrative:: Patient presenting with nausea, vomiting and diarrhea. Recent COVID diagnosis. Labs largely unremarkable. Chest x-ray questioning possible pneumonia. Will cover with antibiotics as patient does also have potential respiratory risk factors/due to COVID. Covered with ceftriaxone/azithromycin. CT scan with no acute findings, several incidental findings. Patient doing much better after IV fluids. However given age and generalized weakness, will admit the patient and continue fluids and monitor. Last Recorded V/S: Last Vital Signs Temp 96.9 F 01/27/20 09:55 Pulse 78 01/27/20 13:45 Resp 20 01/27/20 13:45 BP 106/53 L 01/27/20 13:45 Pulse Ox 93 L 01/27/20 13:45 - Orders/Labs/Meds Orders: Active Orders 24 hr Category Date Time Status Patient Status [ADT] Routine ADT 01/27/20 13:09 Active CULTURE BLOOD [BC] Stat Lab 01/27/20 12:08 Results CULTURE BLOOD [BC] Stat Lab 01/27/20 12:21 Results Sodium Chloride 0.9% [Saline Flush] Med 01/27/20 09:42 Active 10 ml FLUSH ASDIRECTED PRN Sodium Chloride 0.9% [Saline Flush] Med 01/27/20 09:42 Active 2.5 ml FLUSH ASDIRECTED PRN Blood Culture x2 Reflex Set [OM.PC] Stat Oth 01/27/20 11:54 Ordered Saline Lock Insert [OM.PC] Stat Oth 01/27/20 09:42 Ordered Medication Orders Azithromycin (Zithromax) 500 mg IV Q24H [facility] Potassium Chloride/Sodium Chloride (Normal Saline With 40 Meq Kcl) 1,000 mls @ 150 mls/hr IV ASDIRECTED [place]COLM Stop: 01/27/20 20:24 Ceftriaxone Sodium 1 gm/ (Sodium Chloride) 50 mls @ 100 mls/hr IV Q24H [place] Sodium Chloride (Saline Flush) 10 ml FLUSH ASDIRECTED PRN PRN Reason: Keep Vein Open Sodium Chloride (Saline Flush) 2.5 ml FLUSH ASDIRECTED PRN PRN Reason: Keep Vein Open Labs: Laboratory Tests 01/27/20 01/27/20 01/27/20 Range/Units 10:00 10:00 10:00 WBC 4.56 (4.0-11.0) K/uL RBC 4.56 (4.30-5.90) M/uL Hgb 13.5 (12.0-16.0) g/dL Hct 40.6 (36.0-46.0) % MCV 89.0 (80.0-98.0) fL MCH 29.6 (27.0-32.0) pg MCHC 33.3 (31.0-37.0) g/dL RDW Std Deviation 42.9 (28.0-62.0) fl RDW Coeff of Jennyfer 13 (11.0-15.0) % Plt Count 203 (150-400) K/uL MPV 9.90 (7.40-12.00) fL Neut % (Auto) 75.9 (48.0-80.0) % Lymph % (Auto) 17.3 (16.0-40.0) % [place] % (Auto) 6.6 (0.0-15.0) % Eos % (Auto) 0.0 (0.0-7.0) % Baso % (Auto) 0.2 (0.0-1.5) % Neut # (Auto) 3.5 (1.4-5.7) K/uL Lymph # (Auto) 0.8 (0.6-2.4) K/uL [place] # (Auto) 0.3 (0.0-0.8) K/uL Eos # (Auto) 0.0 (0.0-0.7) K/uL Baso # (Auto) 0.0 (0.0-0.1) K/uL Nucleated RBC % 0.0 /100WBC Nucleated RBCs # 0 K/uL Sodium 134 L (136-145) mmol/L Potassium 3.3 L (3.5-5.1) mmol/L Chloride 98 (98-107) mmol/L Carbon Dioxide 26.1 (21.0-32.0) mmol/L BUN 19 H (7.0-18.0) mg/dL Creatinine 0.9 (0.6-1.0) mg/dL Est Cr Clr Drug Dosing TNP Estimated GFR (MDRD) > 60.0 ml/min Glucose 123 H (74-106) mg/dL Calcium 8.4 L (8.5-10.1) mg/dL Magnesium 1.8 (1.8-2.4) mg/dL Total Bilirubin 0.4 (0.2-1.0) mg/dL AST 35 (15-37) IU/L ALT 42 (14-63) IU/L Alkaline Phosphatase 91 (46-116) U/L Troponin I < 0.050 (0.000-0.056) ng/mL Total Protein 7.0 (6.4-8.2) g/dL Albumin 3.2 L (3.4-5.0) g/dL Globulin 3.8 (2.6-4.0) g/dL Albumin/Globulin Ratio 0.8 L (0.9-1.6) Lipase 148 (73-393) U/L Urine Color Urine Appearance Urine pH (5.0-8.0) Ur Specific [place] (1.001-1.035) Urine Protein (NEGATIVE) mg/dL Urine Glucose (UA) (NEGATIVE) mg/dL Urine Ketones (NEGATIVE) mg/dL Urine Occult Blood (NEGATIVE) Urine Nitrite (NEGATIVE) Urine Bilirubin (NEGATIVE) Urine Urobilinogen (<2.0) EU/dL Ur Leukocyte Esterase (NEGATIVE) Urine RBC (0-2/HPF) Urine WBC (0-5/HPF) Ur Epithelial Cells (NONE-FEW) Urine Bacteria (NEGATIVE) Blood Type A POSITIVE Antibody Screen NEGATIVE 01/27/20 Range/Units 11:48 WBC (4.0-11.0) K/uL RBC (4.30-5.90) M/uL Hgb (12.0-16.0) g/dL Hct (36.0-46.0) % MCV (80.0-98.0) fL MCH (27.0-32.0) pg MCHC (31.0-37.0) g/dL RDW Std Deviation (28.0-62.0) fl RDW Coeff of Jennyfer (11.0-15.0) % Plt Count (150-400) K/uL MPV (7.40-12.00) fL Neut % (Auto) (48.0-80.0) % Lymph % (Auto) (16.0-40.0) % [place] % (Auto) (0.0-15.0) % Eos % (Auto) (0.0-7.0) % Baso % (Auto) (0.0-1.5) % Neut # (Auto) (1.4-5.7) K/uL Lymph # (Auto) (0.6-2.4) K/uL [place] # (Auto) (0.0-0.8) K/uL Eos # (Auto) (0.0-0.7) K/uL Baso # (Auto) (0.0-0.1) K/uL Nucleated RBC % /100WBC Nucleated RBCs # K/uL Sodium (136-145) mmol/L Potassium (3.5-5.1) mmol/L Chloride (98-107) mmol/L Carbon Dioxide (21.0-32.0) mmol/L BUN (7.0-18.0) mg/dL Creatinine (0.6-1.0) mg/dL Est Cr Clr Drug Dosing Estimated GFR (MDRD) ml/min Glucose (74-106) mg/dL Calcium (8.5-10.1) mg/dL Magnesium (1.8-2.4) mg/dL Total Bilirubin (0.2-1.0) mg/dL AST (15-37) IU/L ALT (14-63) IU/L Alkaline Phosphatase (46-116) U/L Troponin I (0.000-0.056) ng/mL Total Protein (6.4-8.2) g/dL Albumin (3.4-5.0) g/dL Globulin (2.6-4.0) g/dL Albumin/Globulin Ratio (0.9-1.6) Lipase (73-393) U/L Urine Color YELLOW Urine Appearance CLEAR Urine pH 7.0 (5.0-8.0) Ur Specific [place] <= 1.005 (1.001-1.035) Urine Protein NEGATIVE (NEGATIVE) mg/dL Urine Glucose (UA) NEGATIVE (NEGATIVE) mg/dL Urine Ketones NEGATIVE (NEGATIVE) mg/dL Urine Occult Blood TRACE-INTACT H (NEGATIVE) Urine Nitrite NEGATIVE (NEGATIVE) Urine Bilirubin NEGATIVE (NEGATIVE) Urine Urobilinogen 0.2 (<2.0) EU/dL Ur Leukocyte Esterase NEGATIVE (NEGATIVE) Urine RBC 1-2 (0-2/HPF) Urine WBC 0-1 (0-5/HPF) Ur Epithelial Cells RARE (NONE-FEW) Urine Bacteria RARE (NEGATIVE) Blood Type Antibody Screen Meds: Medications Generic Name Dose Route Start Last Admin Trade Name Freq PRN Reason Stop Dose Admin Azithromycin 500 mg 01/28/20 13:45 Zithromax IV Q24H [facility]COL[facility] Potassium Chloride/Sodium Chloride 1,000 mls @ 150 mls/hr 01/27/20 13:45 Normal Saline With 40 Meq Kcl IV 01/27/20 20:24 ASDIRECTED MALCOLM Ceftriaxone Sodium 1 gm/ 50 mls @ 100 mls/hr 01/28/20 13:45 Sodium Chloride IV Q24H [facility]COL[place] Sodium Chloride 10 ml 01/27/20 09:42 Saline Flush FLUSH ASDIRECTED PRN Keep Vein Open Sodium Chloride 2.5 ml 01/27/20 09:42 Saline Flush FLUSH ASDIRECTED PRN Keep Vein Open Discontinued Medications Generic Name Dose Route Start Last Admin Trade Name Nora PRN Reason Stop Dose Admin Sodium Chloride 1,000 mls @ 999 mls/hr 01/27/20 09:45 01/27/20 09:51 Normal Saline IV 01/27/20 10:45 999 mls/hr .Bolus ONE Administration Azithromycin 500 mg/ Sodium 250 mls @ 250 mls/hr 01/27/20 11:52 Chloride IV 01/27/20 12:51 ONETIME ONE Ceftriaxone Sodium/Dextrose 2 50 mls @ 100 mls/hr 01/27/20 11:52 01/27/20 13:24 gm/ Premix IV 01/27/20 12:21 100 mls/hr ONETIME ONE Administration Iopamidol 100 ml 01/27/20 12:07 01/27/20 12:08 Isovue Multipack-370 (76%) IVPUSH 01/27/20 12:08 100 ml ONETIME STA Administration Ketorolac Tromethamine 15 mg 01/27/20 09:45 01/27/20 09:52 Toradol IVPUSH 01/27/20 09:46 15 mg ONETIME ONE Administration Ondansetron HCl 4 mg 01/27/20 09:45 01/27/20 09:51 Zofran IVPUSH 01/27/20 09:46 4 mg ONETIME ONE Administration - Re-Assessments/Exams Free Text/Narrative Re-Assessment/Exam: 01/27/20 13:[address] Cristina, admitting hospitalist, who accepts the admission, request to place the patient under inpatient status, no telemetry needed at this time, however agrees with continuous pulse oximetry. Angie, the patient's nurse confirmed with patient's daughter that she had COVID testing [facility]. Updated her daughter on need for admission, results, etc. Departure - Departure Time of Disposition: 13:06 Disposition: Admitted As Inpatient 68 Clinical Impression: COVID-19, Nausea vomiting and diarrhea Pneumonia Qualifiers: Laterality: left Lung location: lower lobe of lung - Discharge Information Sepsis Event Note (ED) - Focused Exam Vital Signs: Vital Signs Temp Pulse Resp BP Pulse Ox 01/27/20 11:51 80 20 133/88 97 01/27/20 11:03 70 20 120/44 L 98 01/27/20 09:55 96.9 F 76 18 103/47 L 98 - My Orders Last 24 Hours: My Active Orders 01/27/20 09:42 Sodium Chloride 0.9% [Saline Flush] 10 ml FLUSH ASDIRECTED PRN Sodium Chloride 0.9% [Saline Flush] 2.5 ml FLUSH ASDIRECTED PRN Saline Lock Insert [OM.PC] Stat 01/27/20 11:54 Blood Culture x2 Reflex Set [OM.PC] Stat 01/27/20 12:08 CULTURE BLOOD [BC] Stat 01/27/20 12:21 CULTURE BLOOD [BC] Stat 01/27/20 13:09 Patient Status [ADT] Routine - Assessment/Plan Last 24 Hours: My Active Orders 01/27/20 09:42 Sodium Chloride 0.9% [Saline Flush] 10 ml FLUSH ASDIRECTED PRN Sodium Chloride 0.9% [Saline Flush] 2.5 ml FLUSH ASDIRECTED PRN Saline Lock Insert [OM.PC] Stat 01/27/20 11:54 Blood Culture x2 Reflex Set [OM.PC] Stat 01/27/20 12:08 CULTURE BLOOD [BC] Stat 01/27/20 12:21 CULTURE BLOOD [BC] Stat 01/27/20 13:09 Patient Status [ADT] Routine
[2020-01-27 11:02] LABS: BLOOD UREA NITROGEN,BUN 19 mg/dL (7.0-18.0); CARBON DIOXIDE,CO2 26.1 mmol/L (21.0-32.0); CHLORIDE,CL 98 mmol/L (98-107); GLUCOSE RANDOM 123 mg/dL (74-106); LIPASE 148 U/L (73-393); POTASSIUM,K 3.3 mmol/L (3.5-5.1); SODIUM,NA 134 mmol/L (136-145)
--- NOTE | 2020-01-27 11:47 | CR ---
Chest: Portable view of the chest was obtained. Comparison: No previous chest x-ray. Heart size and mediastinum are normal. Vague density is noted within the peripheral left lung base. Uncertain if this is due to pleural thickening, atelectasis or even small area of pneumonia. Lungs otherwise are clear. Bony structures are grossly intact. Impression: 1. Vague density as noted above within the peripheral left lung base. 2. Portable chest x-ray is otherwise unremarkable. Diagnostic code #3 This report was dictated in MDT
[2020-01-27] MEDS ORDERED: cefTRIAXone 2 GM in Premix Bag 1 BAG IV ONE (11:52)
[2020-01-27] MEDS ORDERED: Azithromycin 500 MG in Sodium Chloride 0.9% 250 ML IV ONE (11:52)
[2020-01-27] MEDS ORDERED: Iopamidol 755 MG/ML 500 ML Multipack Bottle IVPUSH STA (12:07)
--- NOTE | 2020-01-27 12:13 | CT ---
CT abdomen and pelvis Technique: Multiple axial sections were obtained from above the dome of the diaphragm inferiorly through the pubic symphysis. Intravenous contrast was utilized. No oral contrast has been given. Findings: Visualized lung bases shows areas of increased density along the periphery of both lung bases and within the lingula. Findings most likely are due to areas of scarring. Low density lesion is noted close to the inferior vena cava within the intrahepatic portion measuring 1.6 cm. This does not appear as a simple cyst but is likely benign. Small amount of fat is seen next of the ligamentum teres fissure within the liver. Spleen appears within normal limits. Soft tissue nodule is noted medial to the spleen compatible with accessory splenic tissue. Adrenal glands show no nodule. Kidneys show symmetric contrast enhancement. Small cortical cyst is noted within the left kidney measuring 6 mm. No additional renal abnormality is appreciated. Aorta shows no aneurysm. Atherosclerotic calcification seen within the aorta. Pancreas shows no discrete abnormality. No retroperitoneal adenopathy or mesenteric abnormalities are seen. No pelvic mass or adenopathy is seen. No free fluid or inflammatory change is appreciated. Appendix not visualized with certainty. No bowel dilatation is seen. Bone window settings were reviewed which shows scattered endplate spurring within the spine. Impression: 1. Findings believed to be incidental as noted above. 2. Nothing acute is appreciated. Diagnostic code #2 This report was dictated in MDT
[2020-01-27] MEDS ORDERED: Sodium Chloride 0.9% with KCl 1,000 ML IV SCH (13:45)
--- NOTE | 2020-01-27 15:13 | PCM.HP.2 ---
H&P History of Present Illness - General Date of Service: 01/27/20 Admit Problem/Dx: Admission Diagnosis/Problem Admission Diagnosis/Problem Pneumonia - History of Present Illness Initial Comments - Free Text/Narative: 79 yo female with pmh of HTN, and CVA who was tested positive for Covid eight days ago. Her boyfriend that she lives with also has covid and was transferred last week to [place] after being intubated. She reports a week of fatigue, and several days of nausea, diarrhea and vomiting. She denies any fevers or cough. She reports shortness of breath today. In the ED her vital signs were stable but she was ill appearing. Lab work showed some mild hyponatreamia and hypokalemia. Her CT abdomen and pelvis was unremarkable. CXR showed vague left lung base density. Patient agrees to admission but wants to leave tomorrow as she needs to feed her cats. neck and shoulders Pain Score (Numeric/FACES): 8 - Related Data Allergies/Adverse Reactions: Allergies Allergy/AdvReac Type Severity Reaction Status Date / Time acetaminophen Allergy Rash Verified 01/27/20 10:03 [From Excedrin Back & Body] aspirin Allergy Rash Verified 01/27/20 10:03 [From Excedrin Back & Body] calcium carbonate Allergy Rash Verified 01/27/20 10:03 [From Excedrin Back & Body] diclofenac Allergy Rash Verified 01/27/20 10:03 hydrocodone bitartrate Allergy Rash Verified 01/27/20 10:03 [From [place]] ibuprofen Allergy Shortness Verified 01/27/20 10:03 of Breath naproxen sodium [From Aleve] Allergy Rash Verified 01/27/20 10:03 povidone-iodine Allergy Shortness Verified 01/27/20 10:03 [From Betadine] of Breath soap [From Betadine] Allergy Shortness Verified 01/27/20 10:03 of Breath Sulfa (Sulfonamide Allergy Shortness Verified 01/27/20 10:03 Antibiotics) of Breath venom-honey bee Allergy Anaphylactic Verified 01/27/20 10:03 [bee venom (honey bee)] Shock Home Medications: Home Meds LORazepam 1 tab PO BID PRN 06/19/17 [History] Clopidogrel Bisulfate [Clopidogrel] 75 mg PO DAILY 03/31/18 [History] DULoxetine HCl [Duloxetine HCl] 120 mg PO DAILY 03/31/18 [History] Latanoprost/Pf [Latanoprost 0.005% Eye Drop] 1 drop EYEBOTH BEDTIME 11/08/18 [History] Timolol [Betimol] 1 drop EYEBOTH DAILY 04/26/19 [History] cloNIDine [Catapres] 0.1 mg PO BEDTIME 04/26/19 [History] Escitalopram [Lexapro] 10 mg PO DAILY 01/27/20 [History] hydroCHLOROthiazide [Hydrochlorothiazide] 12.5 mg PO DAILY 01/27/20 [History] Past Medical History HEENT History: Reports: Allergic Rhinitis, Cataract, Glaucoma, Other (See Below) Other HEENT History: wears glasses- hx of double vision, has upper permanent dental bridge Cardiovascular History: Reports: High Cholesterol, Hypertension Respiratory History: Reports: None Gastrointestinal History: Reports: Colon Polyp, Diverticulosis, GERD, Hemorrhoids, Hiatal Hernia, Other (See Below) Other Gastrointestinal History: hx of dysphagia Genitourinary History: Reports: None 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: 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: Musculoskeletal History: Reports: Arthritis, Back Pain, Chronic, Fracture Other Musculoskeletal History: hx of fx finger Neurological History: Reports: 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), Migraines, Seizure Other Neuro History: no migraines recently, 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- none since Psychiatric History: Reports: Anxiety, Depression Endocrine/Metabolic History: Reports: Obesity/BMI 30+ Hematologic History: Reports: None Immunologic History: Reports: None Oncologic (Cancer) History: Reports: None Dermatologic History: Reports: Eczema Other Dermatologic History: eczema to feet - Infectious Disease History Infectious Disease History: Reports: Chicken Pox - Past Surgical History Head Surgeries/Procedures: Reports: Craniotomy (for brain tumor at [facility]) HEENT Surgical History: Reports: Cataract Surgery, Naso-Sinus Surgery Other HEENT Surgeries/Procedures: "have nose bleeds often" Cardiovascular Surgical History: Reports: None Respiratory Surgical History: Reports: None GI Surgical History: Reports: Appendectomy, Cholecystectomy, Colon, Colonoscopy, EGD, Hernia, Inguinal, Other (See Below) Other GI Surgeries/Procedures: hx of Paraesophageal hernia repair- states currently has a recurrent hiatial hernia, hx of ventral hernia repair, sigmoid colon resection due to diverticulosis Female Surgical History: Reports: Hysterectomy, Tubal Ligation, Other (See Below) Other Female Surgeries/Procedures: hx of bladder repair x2 Endocrine Surgical History: Reports: None Neurological Surgical History: Reports: None Musculoskeletal Surgical History: Reports: Other (See Below) Other Musculoskeletal Surgeries/Procedures:: right hand surgery for infection Oncologic Surgical History: Reports: None Dermatological Surgical History: Reports: None Social & Family History - Family History Family Medical History: Noncontributory - Tobacco Use Smoking Status *Q: Never Smoker - Caffeine Use Caffeine Use: Reports: Coffee - Recreational Drug Use Recreational Drug Use: No H&P Review of Systems - Review of Systems: Review Of Systems: Comprehensive ROS is negative, except as noted in HPI. Exam - Exam Exam: See Below - Vital Signs Vital Signs: Last Vital Signs Temp 35.9 C L 01/27/20 14:43 Pulse 76 01/27/20 14:43 Resp 20 01/27/20 14:43 BP 147/56 H 01/27/20 14:43 Pulse Ox 98 01/27/20 14:43 Weight: 63.503 kg - Exam General: Alert, Oriented HEENT: Mucosa Moist & Halfway Neck: Supple Lungs: Clear to Auscultation, Normal Respiratory Effort Cardiovascular: Regular Rate, Regular Rhythm GI/Abdominal Exam: Normal Bowel Sounds, Soft, Non-Tender, No Distention Extremities: Non-Tender, No Pedal Edema Skin: Warm, Dry, Intact - Patient Data Lab Results Last 24 hrs: Laboratory Results - last 24 hr 01/27/20 01/27/20 01/27/20 Range/Units 10:00 10:00 10:00 WBC 4.56 (4.0-11.0) K/uL RBC 4.56 (4.30-5.90) M/uL Hgb 13.5 (12.0-16.0) g/dL Hct 40.6 (36.0-46.0) % MCV 89.0 (80.0-98.0) fL MCH 29.6 (27.0-32.0) pg MCHC 33.3 (31.0-37.0) g/dL RDW Std Deviation 42.9 (28.0-62.0) fl RDW Coeff of Jennyfer 13 (11.0-15.0) % Plt Count 203 (150-400) K/uL MPV 9.90 (7.40-12.00) fL Neut % (Auto) 75.9 (48.0-80.0) % Lymph % (Auto) 17.3 (16.0-40.0) % [place] % (Auto) 6.6 (0.0-15.0) % Eos % (Auto) 0.0 (0.0-7.0) % Baso % (Auto) 0.2 (0.0-1.5) % Neut # (Auto) 3.5 (1.4-5.7) K/uL Lymph # (Auto) 0.8 (0.6-2.4) K/uL [place] # (Auto) 0.3 (0.0-0.8) K/uL Eos # (Auto) 0.0 (0.0-0.7) K/uL Baso # (Auto) 0.0 (0.0-0.1) K/uL Nucleated RBC % 0.0 /100WBC Nucleated RBCs # 0 K/uL Sodium 134 L (136-145) mmol/L Potassium 3.3 L (3.5-5.1) mmol/L Chloride 98 (98-107) mmol/L Carbon Dioxide 26.1 (21.0-32.0) mmol/L BUN 19 H (7.0-18.0) mg/dL Creatinine 0.9 (0.6-1.0) mg/dL Est Cr Clr Drug Dosing TNP Estimated GFR (MDRD) > 60.0 ml/min Glucose 123 H (74-106) mg/dL Calcium 8.4 L (8.5-10.1) mg/dL Magnesium 1.8 (1.8-2.4) mg/dL Total Bilirubin 0.4 (0.2-1.0) mg/dL AST 35 (15-37) IU/L ALT 42 (14-63) IU/L Alkaline Phosphatase 91 (46-116) U/L Troponin I < 0.050 (0.000-0.056) ng/mL Total Protein 7.0 (6.4-8.2) g/dL Albumin 3.2 L (3.4-5.0) g/dL Globulin 3.8 (2.6-4.0) g/dL Albumin/Globulin Ratio 0.8 L (0.9-1.6) Lipase 148 (73-393) U/L Urine Color Urine Appearance Urine pH (5.0-8.0) Ur Specific [place] (1.001-1.035) Urine Protein (NEGATIVE) mg/dL Urine Glucose (UA) (NEGATIVE) mg/dL Urine Ketones (NEGATIVE) mg/dL Urine Occult Blood (NEGATIVE) Urine Nitrite (NEGATIVE) Urine Bilirubin (NEGATIVE) Urine Urobilinogen (<2.0) EU/dL Ur Leukocyte Esterase (NEGATIVE) Urine RBC (0-2/HPF) Urine WBC (0-5/HPF) Ur Epithelial Cells (NONE-FEW) Urine Bacteria (NEGATIVE) Blood Type A POSITIVE Antibody Screen NEGATIVE 01/27/20 Range/Units 11:48 WBC (4.0-11.0) K/uL RBC (4.30-5.90) M/uL Hgb (12.0-16.0) g/dL Hct (36.0-46.0) % MCV (80.0-98.0) fL MCH (27.0-32.0) pg MCHC (31.0-37.0) g/dL RDW Std Deviation (28.0-62.0) fl RDW Coeff of Jennyfer (11.0-15.0) % Plt Count (150-400) K/uL MPV (7.40-12.00) fL Neut % (Auto) (48.0-80.0) % Lymph % (Auto) (16.0-40.0) % [place] % (Auto) (0.0-15.0) % Eos % (Auto) (0.0-7.0) % Baso % (Auto) (0.0-1.5) % Neut # (Auto) (1.4-5.7) K/uL Lymph # (Auto) (0.6-2.4) K/uL [place] # (Auto) (0.0-0.8) K/uL Eos # (Auto) (0.0-0.7) K/uL Baso # (Auto) (0.0-0.1) K/uL Nucleated RBC % /100WBC Nucleated RBCs # K/uL Sodium (136-145) mmol/L Potassium (3.5-5.1) mmol/L Chloride (98-107) mmol/L Carbon Dioxide (21.0-32.0) mmol/L BUN (7.0-18.0) mg/dL Creatinine (0.6-1.0) mg/dL Est Cr Clr Drug Dosing Estimated GFR (MDRD) ml/min Glucose (74-106) mg/dL Calcium (8.5-10.1) mg/dL Magnesium (1.8-2.4) mg/dL Total Bilirubin (0.2-1.0) mg/dL AST (15-37) IU/L ALT (14-63) IU/L Alkaline Phosphatase (46-116) U/L Troponin I (0.000-0.056) ng/mL Total Protein (6.4-8.2) g/dL Albumin (3.4-5.0) g/dL Globulin (2.6-4.0) g/dL Albumin/Globulin Ratio (0.9-1.6) Lipase (73-393) U/L Urine Color YELLOW Urine Appearance CLEAR Urine pH 7.0 (5.0-8.0) Ur Specific [place] <= 1.005 (1.001-1.035) Urine Protein NEGATIVE (NEGATIVE) mg/dL Urine Glucose (UA) NEGATIVE (NEGATIVE) mg/dL Urine Ketones NEGATIVE (NEGATIVE) mg/dL Urine Occult Blood TRACE-INTACT H (NEGATIVE) Urine Nitrite NEGATIVE (NEGATIVE) Urine Bilirubin NEGATIVE (NEGATIVE) Urine Urobilinogen 0.2 (<2.0) EU/dL Ur Leukocyte Esterase NEGATIVE (NEGATIVE) Urine RBC 1-2 (0-2/HPF) Urine WBC 0-1 (0-5/HPF) Ur Epithelial Cells RARE (NONE-FEW) Urine Bacteria RARE (NEGATIVE) Blood Type Antibody Screen Result Diagrams: 01/27/20 10:00 01/27/20 10:00 Jamir Results Last 24 hrs: Microbiology 01/27/20 12:21 Anaerobic Blood Culture - Final Blood - Venous - Lab Draw 01/27/20 12:08 Anaerobic Blood Culture - Final Blood - Venous Sepsis Event Note - Evaluation Sepsis Screening Result: No Definite Risk - Focused Exam Vital Signs: Vital Signs Temp Temp Pulse Resp BP Pulse Ox 01/27/20 14:43 35.9 C L 76 20 147/56 H 98 01/27/20 13:45 78 20 106/53 L 93 L 01/27/20 13:40 67 17 106/53 L 93 L 01/27/20 13:10 63 20 112/38 L 94 L 01/27/20 11:51 80 20 133/88 97 01/27/20 11:03 70 20 120/44 L 98 01/27/20 09:55 36.1 C 76 18 103/47 L 98 Date Exam was Performed: 01/27/20 Time Exam was Performed: 15:05 Problem List Initiated/Reviewed/Updated: Yes Orders Last 24hrs: Active Orders 24 hr Category Date Time Status Patient Status [ADT] Routine ADT 01/27/20 13:09 Active CULTURE BLOOD [BC] Stat Lab 01/27/20 12:08 Results CULTURE BLOOD [BC] Stat Lab 01/27/20 12:21 Results Azithromycin [Zithromax] Med 01/28/20 13:45 Active 500 mg IV Q24H Sodium Chloride 0.9% [Saline Flush] Med 01/27/20 09:42 Active 10 ml FLUSH ASDIRECTED PRN Sodium Chloride 0.9% [Saline Flush] Med 01/27/20 09:42 Active 2.5 ml FLUSH ASDIRECTED PRN Sodium Chloride 0.9% with KCl [Normal Saline with 40 Med 01/27/20 13:45 Active mEq KCl] 1,000 ml IV ASDIRECTED cefTRIAXone [Rocephin] 1 gm Med 01/28/20 13:45 Active Sodium Chloride 0.9% [Normal Saline] 50 ml IV Q24H Blood Culture x2 Reflex Set [OM.PC] Stat Oth 01/27/20 11:54 Ordered Saline Lock Insert [OM.PC] Stat Oth 01/27/20 09:42 Ordered Medication Orders Azithromycin (Zithromax) 500 mg IV Q24H [place] Potassium Chloride/Sodium Chloride (Normal Saline With 40 Meq Kcl) 1,000 mls @ 150 mls/hr IV ASDIRECTED [place] Stop: 01/27/20 20:24 Ceftriaxone Sodium 1 gm/ (Sodium Chloride) 50 mls @ 100 mls/hr IV Q24H [place] Sodium Chloride (Saline Flush) 10 ml FLUSH ASDIRECTED PRN PRN Reason: Keep Vein Open Sodium Chloride (Saline Flush) 2.5 ml FLUSH ASDIRECTED PRN PRN Reason: Keep Vein Open Assessment/Plan Comment:: 79 yo female admitted COVID-19. We will treat supportively. Patient appears dehydrated so we will hydrate with IV fluids appropriately. We will treat with Rocephin and Azithromycin for possible pneumonia. Patient requests to be DNR/DNI.
[2020-01-27] MEDS: Heparin Sodium 5,000 Units/ML Vial SUBCUT SCH ×2 (16:10→22:25)
[2020-01-27] MEDS: Sodium Chloride 0.9% 1,000 ML IV SCH (22:36)
[2020-01-28] MEDS: Heparin Sodium 5,000 Units/ML Vial SUBCUT SCH ×3 (06:46→23:33)
[2020-01-28 06:53] LABS: BLOOD UREA NITROGEN,BUN 13 mg/dL (7.0-18.0); CARBON DIOXIDE,CO2 22.6 mmol/L (21.0-32.0); CHLORIDE,CL 104 mmol/L (98-107); GLUCOSE RANDOM 96 mg/dL (74-106); POTASSIUM,K 4.1 mmol/L (3.5-5.1); SODIUM,NA 136 mmol/L (136-145)
[2020-01-28] MEDS: Sodium Chloride 0.9% 1,000 ML IV SCH ×2 (08:31→23:34)
[2020-01-28] MEDS: DULoxetine 60 MG Cap PO SCH (09:33)
[2020-01-28] MEDS: Escitalopram 10 MG Tab PO SCH (09:33)
[2020-01-28] MEDS: Clopidogrel 75 MG Tab PO SCH (09:33)
--- NOTE | 2020-01-28 10:42 | PCM.PN ---
- General Info Date of Service: 01/28/20 - Review of Systems Systems Review Comment:: Patient feeling weak, reports shortness of breath has improved - Patient Data Vitals - Most Recent: Last Vital Signs Temp 36.8 C 01/28/20 08:00 Pulse 68 01/28/20 08:00 Resp 20 01/28/20 08:00 BP 137/56 L 01/28/20 08:00 Pulse Ox 94 L 01/28/20 08:00 Weight - Most Recent: 63.503 kg I&O - Last 24 Hours: Intake & Output 01/27/20 01/28/20 01/28/20 22:59 06:59 14:59 Intake Total 1456 802 Output Total 650 Balance 1456 152 Lab Results Last 24 Hours: Laboratory Results - last 24 hr 01/27/20 01/27/20 01/27/20 Range/Units 10:00 10:00 10:00 WBC 4.56 (4.0-11.0) K/uL RBC 4.56 (4.30-5.90) M/uL Hgb 13.5 (12.0-16.0) g/dL Hct 40.6 (36.0-46.0) % MCV 89.0 (80.0-98.0) fL MCH 29.6 (27.0-32.0) pg MCHC 33.3 (31.0-37.0) g/dL RDW Std Deviation 42.9 (28.0-62.0) fl RDW Coeff of Jennyfer 13 (11.0-15.0) % Plt Count 203 (150-400) K/uL MPV 9.90 (7.40-12.00) fL Neut % (Auto) 75.9 (48.0-80.0) % Lymph % (Auto) 17.3 (16.0-40.0) % [place] % (Auto) 6.6 (0.0-15.0) % Eos % (Auto) 0.0 (0.0-7.0) % Baso % (Auto) 0.2 (0.0-1.5) % Neut # (Auto) 3.5 (1.4-5.7) K/uL Lymph # (Auto) 0.8 (0.6-2.4) K/uL [place] # (Auto) 0.3 (0.0-0.8) K/uL Eos # (Auto) 0.0 (0.0-0.7) K/uL Baso # (Auto) 0.0 (0.0-0.1) K/uL Nucleated RBC % 0.0 /100WBC Nucleated RBCs # 0 K/uL Sodium 134 L (136-145) mmol/L Potassium 3.3 L (3.5-5.1) mmol/L Chloride 98 (98-107) mmol/L Carbon Dioxide 26.1 (21.0-32.0) mmol/L BUN 19 H (7.0-18.0) mg/dL Creatinine 0.9 (0.6-1.0) mg/dL Est Cr Clr Drug Dosing TNP Estimated GFR (MDRD) > 60.0 ml/min Glucose 123 H (74-106) mg/dL Calcium 8.4 L (8.5-10.1) mg/dL Magnesium 1.8 (1.8-2.4) mg/dL Total Bilirubin 0.4 (0.2-1.0) mg/dL AST 35 (15-37) IU/L ALT 42 (14-63) IU/L Alkaline Phosphatase 91 (46-116) U/L Troponin I < 0.050 (0.000-0.056) ng/mL Total Protein 7.0 (6.4-8.2) g/dL Albumin 3.2 L (3.4-5.0) g/dL Globulin 3.8 (2.6-4.0) g/dL Albumin/Globulin Ratio 0.8 L (0.9-1.6) Lipase 148 (73-393) U/L Urine Color Urine Appearance Urine pH (5.0-8.0) Ur Specific [place] (1.001-1.035) Urine Protein (NEGATIVE) mg/dL Urine Glucose (UA) (NEGATIVE) mg/dL Urine Ketones (NEGATIVE) mg/dL Urine Occult Blood (NEGATIVE) Urine Nitrite (NEGATIVE) Urine Bilirubin (NEGATIVE) Urine Urobilinogen (<2.0) EU/dL Ur Leukocyte Esterase (NEGATIVE) Urine RBC (0-2/HPF) Urine WBC (0-5/HPF) Ur Epithelial Cells (NONE-FEW) Urine Bacteria (NEGATIVE) Blood Type A POSITIVE Antibody Screen NEGATIVE 0701/28/20 01/28/20 Range/Units 11:48 06:18 06:18 WBC 3.91 L (4.0-11.0) K/uL RBC 4.15 L (4.30-5.90) M/uL Hgb 12.3 (12.0-16.0) g/dL Hct 37.2 (36.0-46.0) % MCV 89.6 (80.0-98.0) fL MCH 29.6 (27.0-32.0) pg MCHC 33.1 (31.0-37.0) g/dL RDW Std Deviation 43.6 (28.0-62.0) fl RDW Coeff of Jennyfer 13 (11.0-15.0) % Plt Count 198 (150-400) K/uL MPV 9.30 (7.40-12.00) fL Neut % (Auto) 61.9 (48.0-80.0) % Lymph % (Auto) 30.7 (16.0-40.0) % [place] % (Auto) 7.4 (0.0-15.0) % Eos % (Auto) 0.0 (0.0-7.0) % Baso % (Auto) 0.0 (0.0-1.5) % Neut # (Auto) 2.4 (1.4-5.7) K/uL Lymph # (Auto) 1.2 (0.6-2.4) K/uL [place] # (Auto) 0.3 (0.0-0.8) K/uL Eos # (Auto) 0.0 (0.0-0.7) K/uL Baso # (Auto) 0.0 (0.0-0.1) K/uL Nucleated RBC % 0.0 /100WBC Nucleated RBCs # 0 K/uL Sodium 136 (136-145) mmol/L Potassium 4.1 (3.5-5.1) mmol/L Chloride 104 (98-107) mmol/L Carbon Dioxide 22.6 (21.0-32.0) mmol/L BUN 13 (7.0-18.0) mg/dL Creatinine 0.7 (0.6-1.0) mg/dL Est Cr Clr Drug Dosing 53.23 Estimated GFR (MDRD) > 60.0 ml/min Glucose 96 (74-106) mg/dL Calcium 7.8 L (8.5-10.1) mg/dL Magnesium (1.8-2.4) mg/dL Total Bilirubin 0.3 (0.2-1.0) mg/dL AST 23 (15-37) IU/L ALT 31 (14-63) IU/L Alkaline Phosphatase 80 (46-116) U/L Troponin I (0.000-0.056) ng/mL Total Protein 6.0 L (6.4-8.2) g/dL Albumin 2.8 L (3.4-5.0) g/dL Globulin 3.2 (2.6-4.0) g/dL Albumin/Globulin Ratio 0.9 (0.9-1.6) Lipase (73-393) U/L Urine Color YELLOW Urine Appearance CLEAR Urine pH 7.0 (5.0-8.0) Ur Specific [place] <= 1.005 (1.001-1.035) Urine Protein NEGATIVE (NEGATIVE) mg/dL Urine Glucose (UA) NEGATIVE (NEGATIVE) mg/dL Urine Ketones NEGATIVE (NEGATIVE) mg/dL Urine Occult Blood TRACE-INTACT H (NEGATIVE) Urine Nitrite NEGATIVE (NEGATIVE) Urine Bilirubin NEGATIVE (NEGATIVE) Urine Urobilinogen 0.2 (<2.0) EU/dL Ur Leukocyte Esterase NEGATIVE (NEGATIVE) Urine RBC 1-2 (0-2/HPF) Urine WBC 0-1 (0-5/HPF) Ur Epithelial Cells RARE (NONE-FEW) Urine Bacteria RARE (NEGATIVE) Blood Type Antibody Screen Jamir Results Last 24 Hours: Microbiology 01/27/20 12:21 Anaerobic Blood Culture - Final Blood - Venous - Lab Draw 01/27/20 12:08 Anaerobic Blood Culture - Final Blood - Venous Med Orders - Current: Current Medications Azithromycin (Zithromax) 500 mg IV Q24H [facility] Clopidogrel Bisulfate (Plavix) 75 mg PO DAILY [facility] Last Admin: 01/28/20 09:33 Dose: 75 mg Documented by: Dexamethasone (Dexamethasone) 6 mg IVPUSH DAILY [facility] Duloxetine HCl (Cymbalta) 120 mg PO DAILY [facility] Last Admin: 01/28/20 09:33 Dose: 120 mg Documented by: Escitalopram Oxalate (Lexapro) 10 mg PO DAILY [facility] Last Admin: 01/28/20 09:33 Dose: 10 mg Documented by: Heparin Sodium (Porcine) (Heparin Sodium) 5,000 units SUBCUT Q8H [facility] Last Admin: 01/28/20 06:46 Dose: 5,000 units Documented by: Sodium Chloride (Normal Saline) 1,000 mls @ 100 mls/hr IV ASDIRECTED [facility] Last Admin: 01/28/20 08:31 Dose: 100 mls/hr Documented by: Ceftriaxone Sodium/Dextrose 1 (gm/ Premix) 50 mls @ 100 mls/hr IV Q24H [facility] Lorazepam (Ativan) 1 mg PO BID PRN PRN Reason: Anxiety Ondansetron HCl (Zofran) 4 mg IVPUSH Q4H PRN PRN Reason: Nausea Sodium Chloride (Saline Flush) 10 ml FLUSH ASDIRECTED PRN PRN Reason: Keep Vein Open Sodium Chloride (Saline Flush) 2.5 ml FLUSH ASDIRECTED PRN PRN Reason: Keep Vein Open Timolol Maleate (Timoptic 0.5% Ophth Soln) 1 ml EYEBOTH DAILY [facility] Discontinued Medications Sodium Chloride (Normal Saline) 1,000 mls @ 999 mls/hr IV .Bolus ONE Stop: 01/27/20 10:45 Last Admin: 01/27/20 09:51 Dose: 999 mls/hr Documented by: Azithromycin 500 mg/ Sodium (Chloride) 250 mls @ 250 mls/hr IV ONETIME ONE Stop: 01/27/20 12:51 Last Admin: 01/27/20 14:49 Dose: 250 mls/hr Documented by: Ceftriaxone Sodium/Dextrose 2 (gm/ Premix) 50 mls @ 100 mls/hr IV ONETIME ONE Stop: 01/27/20 12:21 Last Admin: 01/27/20 13:24 Dose: 100 mls/hr Documented by: Potassium Chloride/Sodium Chloride (Normal Saline With 40 Meq Kcl) 1,000 mls @ 150 mls/hr IV ASDIRECTED [place] Stop: 01/27/20 20:24 Last Admin: 01/27/20 16:04 Dose: 150 mls/hr Documented by: Ceftriaxone Sodium 1 gm/ (Sodium Chloride) 50 mls @ 100 mls/hr IV Q24H [facility] Iopamidol (Isovue Multipack-370 (76%)) 100 ml IVPUSH ONETIME STA Stop: 01/27/20 12:08 Last Admin: 01/27/20 12:08 Dose: 100 ml Documented by: Ketorolac Tromethamine (Toradol) 15 mg IVPUSH ONETIME ONE Stop: 01/27/20 09:46 Last Admin: 01/27/20 09:52 Dose: 15 mg Documented by: Ondansetron HCl (Zofran) 4 mg IVPUSH ONETIME ONE Stop: 01/27/20 09:46 Last Admin: 01/27/20 09:51 Dose: 4 mg Documented by: - Exam General: Alert, Oriented, Other (diaphoretic) Neck: Supple Lungs: Clear to Auscultation, Normal Respiratory Effort Cardiovascular: Regular Rate, Regular Rhythm GI/Abdominal Exam: Normal Bowel Sounds, Soft, Non-Tender, No Distention Extremities: Non-Tender, No Pedal Edema Skin: Warm, Dry, Intact Sepsis Event Note - Evaluation Sepsis Screening Result: No Definite Risk - Focused Exam Vital Signs: Vital Signs Temp Pulse Resp BP Pulse Ox 01/28/20 08:00 36.8 C 68 20 137/56 L 94 L 01/28/20 04:00 37.7 C 78 20 119/57 L 93 L 01/28/20 00:15 37.7 C 81 20 115/50 L 94 L Date Exam was Performed: 01/28/20 Time Exam was Performed: 10:39 - Problem List Review Problem List Initiated/Reviewed/Updated: Yes - My Orders Last 24 Hours: My Active Orders 01/27/20 15:06 LORazepam [Ativan] 1 mg PO BID PRN 01/27/20 15:07 Oxygen Therapy [RC] PRN Up ad Katarina [RC] ASDIRECTED VTE/DVT Education [RC] PER UNIT ROUTINE Vital Signs [RC] Q4H Ondansetron [Zofran] 4 mg IVPUSH Q4H PRN Resuscitation Status Routine 01/27/20 15:15 Heparin Sodium 5,000 units SUBCUT Q8H Sodium Chloride 0.9% [Normal Saline] 1,000 ml IV ASDIRECTED 01/27/20 15:19 Telemetry Monitoring [Cardiac Monitoring] [RC] Q8H 01/28/20 09:00 Clopidogrel [Plavix] 75 mg PO DAILY DULoxetine [Cymbalta] 120 mg PO DAILY Escitalopram [Lexapro] 10 mg PO DAILY timoloL maleate [Timoptic 0.5% Ophth Soln] 1 ml EYEBOTH DAILY 01/28/20 10:45 dexAMETHasone [Dexamethasone] 6 mg IVPUSH DAILY 01/28/20 13:30 cefTRIAXone [Rocephin in Dextrose,Iso-Osm 1 GM/50 ML] 1 gm Premix Bag 1 bag IV Q24H 01/28/20 13:45 Azithromycin [Zithromax] 500 mg IV Q24H - Plan Plan:: 79 yo female admitted COVID-19. We will treat supportively. Due to low oxygen sats at night down to 88, we will start Dexamethasone. Will continue Rocephin and Azithromycin for possible pneumonia.
[2020-01-28] MEDS: Dexamethasone 10 MG/ML SDV IVPUSH SCH (11:10)
[2020-01-28] MEDS: Timolol Maleate 0.5% Ophth Soln 15 ML Bottle EYEBOTH SCH (11:54)
[2020-01-28] MEDS: cefTRIAXone 1 GM in Premix Bag 1 BAG IV SCH (13:30)
[2020-01-28] MEDS ORDERED: cefTRIAXone 1 GM in Sodium Chloride 0.9% 50 ML IV SCH (13:45)
[2020-01-28] MEDS ORDERED: Azithromycin 500 MG Vial IV SCH (13:45)
[2020-01-28] MEDS ORDERED: Latanoprost 0.005% Ophth Soln 2.5 ML Bottle EYEBOTH ONE (23:30)
[2020-01-29] MEDS: Timolol Maleate 0.5% Ophth Soln 15 ML Bottle EYEBOTH SCH ×2 (05:14→09:06)
[2020-01-29 06:29] LABS: BLOOD UREA NITROGEN,BUN 13 mg/dL (7.0-18.0); CHLORIDE,CL 102 mmol/L (98-107); GLUCOSE RANDOM 97 mg/dL (74-106); POTASSIUM,K 3.7 mmol/L (3.5-5.1); SODIUM,NA 137 mmol/L (136-145)
[2020-01-29] MEDS: Escitalopram 10 MG Tab PO SCH (08:48)
[2020-01-29] MEDS: Clopidogrel 75 MG Tab PO SCH (08:48)
[2020-01-29] MEDS: DULoxetine 60 MG Cap PO SCH (08:49)
[2020-01-29] MEDS: Dexamethasone 10 MG/ML SDV IVPUSH SCH (08:49)
[2020-01-29] MEDS: Enoxaparin 40 MG/0.4 ML Syringe SUBCUT SCH (08:51)
[2020-01-29] MEDS: Heparin Sodium 5,000 Units/ML Vial SUBCUT SCH (10:14)
[2020-01-29] MEDS: Morphine 2 MG/ML SYRINGE IVPUSH PRN ×2 (10:39→21:35)
[2020-01-29] MEDS: Ondansetron 4 MG/2 ML SDV IVPUSH PRN ×2 (10:39→21:30)
--- NOTE | 2020-01-29 11:43 | PCM.PN ---
- General Info Date of Service: 01/29/20 - Review of Systems Systems Review Comment:: no shortness of breath, no fevers, reports upset stomach, no diarrhea - Patient Data Vitals - Most Recent: Last Vital Signs Temp 36.4 C 01/29/20 08:15 Pulse 78 01/29/20 10:42 Resp 16 01/29/20 08:15 BP 142/62 H 01/29/20 08:15 Pulse Ox 83 L 01/29/20 10:43 Weight - Most Recent: 63.503 kg I&O - Last 24 Hours: Intake & Output 01/28/20 01/29/20 01/29/20 22:59 06:59 14:59 Intake Total 1339 580 Output Total 1900 450 Balance -561 130 Lab Results Last 24 Hours: Laboratory Results - last 24 hr 01/29/20 01/29/20 Range/Units 05:55 05:55 WBC 4.67 (4.0-11.0) K/uL RBC 4.23 L (4.30-5.90) M/uL Hgb 12.3 (12.0-16.0) g/dL Hct 37.7 (36.0-46.0) % MCV 89.1 (80.0-98.0) fL MCH 29.1 (27.0-32.0) pg MCHC 32.6 (31.0-37.0) g/dL RDW Std Deviation 43.1 (28.0-62.0) fl RDW Coeff of Jennyfer 13 (11.0-15.0) % Plt Count 228 (150-400) K/uL MPV 9.50 (7.40-12.00) fL Neut % (Auto) 62.7 (48.0-80.0) % Lymph % (Auto) 31.9 (16.0-40.0) % Long % (Auto) 5.4 (0.0-15.0) % Eos % (Auto) 0.0 (0.0-7.0) % Baso % (Auto) 0.0 (0.0-1.5) % Neut # (Auto) 2.9 (1.4-5.7) K/uL Lymph # (Auto) 1.5 (0.6-2.4) K/uL Long # (Auto) 0.3 (0.0-0.8) K/uL Eos # (Auto) 0.0 (0.0-0.7) K/uL Baso # (Auto) 0.0 (0.0-0.1) K/uL Nucleated RBC % 0.0 /100WBC Nucleated RBCs # 0 K/uL Sodium 137 (136-145) mmol/L Potassium 3.7 (3.5-5.1) mmol/L Chloride 102 (98-107) mmol/L Carbon Dioxide 24.0 (21.0-32.0) mmol/L BUN 13 (7.0-18.0) mg/dL Creatinine 0.6 (0.6-1.0) mg/dL Est Cr Clr Drug Dosing 62.10 mL/min Estimated GFR (MDRD) > 60.0 ml/min Glucose 97 (74-106) mg/dL Calcium 8.4 L (8.5-10.1) mg/dL Jamir Results Last 24 Hours: Microbiology 01/27/20 12:08 Aerobic Blood Culture - Preliminary Blood - Venous NO GROWTH AFTER 1 DAY Anaerobic Blood Culture - Final 01/27/20 12:21 Aerobic Blood Culture - Preliminary Blood - Venous - Lab Draw NO GROWTH AFTER 1 DAY Anaerobic Blood Culture - Final Med Orders - Current: Current Medications Clopidogrel Bisulfate (Plavix) 75 mg PO DAILY [facility] Last Admin: 01/29/20 08:48 Dose: 75 mg Documented by: Dexamethasone (Dexamethasone) 6 mg IVPUSH DAILY [facility] Last Admin: 01/29/20 08:49 Dose: 6 mg Documented by: Duloxetine HCl (Cymbalta) 120 mg PO DAILY [facility] Last Admin: 01/29/20 08:49 Dose: 120 mg Documented by: Enoxaparin Sodium (Lovenox) 40 mg SUBCUT Q24H [facility] Last Admin: 01/29/20 08:51 Dose: 40 mg Documented by: Escitalopram Oxalate (Lexapro) 10 mg PO DAILY [facility] Last Admin: 01/29/20 08:48 Dose: 10 mg Documented by: Sodium Chloride (Normal Saline) 1,000 mls @ 50 mls/hr IV ASDIRECTED [facility] Last Admin: 01/28/20 23:34 Dose: 50 mls/hr Documented by: Ceftriaxone Sodium/Dextrose 1 (gm/ Premix) 50 mls @ 100 mls/hr IV Q24H [facility] Last Admin: 01/28/20 13:30 Dose: 100 mls/hr Documented by: Azithromycin 500 mg/ Sodium (Chloride) 250 mls @ 250 mls/hr IV Q24H [facility] Latanoprost (Xalatan 0.005% Ophth Soln) 0 ml EYEBOTH BEDTIME [facility] Lorazepam (Ativan) 1 mg PO BID PRN PRN Reason: Anxiety Morphine Sulfate (Morphine) 2 mg IVPUSH Q4H PRN PRN Reason: Pain Last Admin: 01/29/20 10:39 Dose: 2 mg Documented by: Ondansetron HCl (Zofran) 4 mg IVPUSH Q4H PRN PRN Reason: Nausea Last Admin: 01/29/20 10:39 Dose: 4 mg Documented by: Sodium Chloride (Saline Flush) 10 ml FLUSH ASDIRECTED PRN PRN Reason: Keep Vein Open Sodium Chloride (Saline Flush) 2.5 ml FLUSH ASDIRECTED PRN PRN Reason: Keep Vein Open Timolol Maleate (Timoptic 0.5% Oph Soln) 1 ml EYEBOTH DAILY [facility] Last Admin: 01/29/20 09:06 Dose: Not Given Documented by: Discontinued Medications Azithromycin (Zithromax) 500 mg IV Q24H [facility] Last Admin: 01/28/20 14:09 Dose: 500 mg Documented by: Heparin Sodium (Porcine) (Heparin Sodium) 5,000 units SUBCUT Q8H [facility] Last Admin: 01/29/20 10:14 Dose: Not Given Documented by: Sodium Chloride (Normal Saline) 1,000 mls @ 999 mls/hr IV .Bolus ONE Stop: 01/27/20 10:45 Last Admin: 01/27/20 09:51 Dose: 999 mls/hr Documented by: Azithromycin 500 mg/ Sodium (Chloride) 250 mls @ 250 mls/hr IV ONETIME ONE Stop: 01/27/20 12:51 Last Admin: 01/27/20 14:49 Dose: 250 mls/hr Documented by: Ceftriaxone Sodium/Dextrose 2 (gm/ Premix) 50 mls @ 100 mls/hr IV ONETIME ONE Stop: 01/27/20 12:21 Last Admin: 01/27/20 13:24 Dose: 100 mls/hr Documented by: Potassium Chloride/Sodium Chloride (Normal Saline With 40 Meq Kcl) 1,000 mls @ 150 mls/hr IV ASDIRECTED [facility] Stop: 01/27/20 20:24 Last Admin: 01/27/20 16:04 Dose: 150 mls/hr Documented by: Ceftriaxone Sodium 1 gm/ (Sodium Chloride) 50 mls @ 100 mls/hr IV Q24H [facility] Iopamidol (Isovue Multipack-370 (76%)) 100 ml IVPUSH ONETIME STA Stop: 01/27/20 12:08 Last Admin: 01/27/20 12:08 Dose: 100 ml Documented by: Ketorolac Tromethamine (Toradol) 15 mg IVPUSH ONETIME ONE Stop: 01/27/20 09:46 Last Admin: 01/27/20 09:52 Dose: 15 mg Documented by: Latanoprost (Xalatan 0.005% Ophth Soln) 0 ml EYEBOTH ONETIME ONE Stop: 01/28/20 23:31 Last Admin: 01/29/20 01:24 Dose: Not Given Documented by: Ondansetron HCl (Zofran) 4 mg IVPUSH ONETIME ONE Stop: 01/27/20 09:46 Last Admin: 01/27/20 09:51 Dose: 4 mg Documented by: - Exam General: Alert, Oriented, Other (diaphoretic) Neck: Supple Lungs: Clear to Auscultation, Normal Respiratory Effort Cardiovascular: Regular Rate, Regular Rhythm GI/Abdominal Exam: Normal Bowel Sounds, Soft, Non-Tender, No Distention Extremities: Non-Tender, No Pedal Edema Skin: Warm, Intact Sepsis Event Note - Evaluation Sepsis Screening Result: No Definite Risk - Focused Exam Vital Signs: Vital Signs Temp Pulse Resp BP BP Pulse Ox Pulse Ox 01/29/20 10:43 92 L 01/29/20 10:42 78 84 L 01/29/20 08:15 36.4 C 68 16 142/62 H 94 L 01/29/20 05:00 93 L 01/29/20 04:00 37.3 C 74 16 128/72 94 L 01/28/20 23:45 36.8 C 73 14 125/64 93 L Pulse Ox 01/29/20 10:43 83 L 01/29/20 10:42 01/29/20 08:15 01/29/20 05:00 01/29/20 04:00 01/28/20 23:45 Date Exam was Performed: 01/29/20 Time Exam was Performed: 11:40 - Problem List Review Problem List Initiated/Reviewed/Updated: Yes - My Orders Last 24 Hours: My Active Orders 01/28/20 10:45 dexAMETHasone [Dexamethasone] 6 mg IVPUSH DAILY 01/28/20 13:30 cefTRIAXone [Rocephin in Dextrose,Iso-Osm 1 GM/50 ML] 1 gm Premix Bag 1 bag IV Q24H 01/29/20 09:00 Enoxaparin [Lovenox] 40 mg SUBCUT Q24H 01/29/20 10:05 Morphine 2 mg IVPUSH Q4H PRN 01/29/20 14:00 Azithromycin [Zithromax] 500 mg Sodium Chloride 0.9% [Normal Saline (AdvBag)] 250 ml IV Q24H 01/29/20 21:00 Latanoprost [Xalatan 0.005% Ophth Soln] 0 ml EYEBOTH BEDTIME - Plan Plan:: 79 yo female admitted COVID-19. We will treat supportively. We will continue Rocephin and Azithromycin for possible pneumonia. Dexamethasone for COVID with hypoxia. Patient requests to be DNR/DNI.
[2020-01-29] MEDS ORDERED: Pantoprazole 40 MG Tab.CR PO SCH (11:45)
[2020-01-29] MEDS: Pantoprazole 40 MG Tab.CR PO SCH (13:12)
[2020-01-29] MEDS: cefTRIAXone 1 GM in Premix Bag 1 BAG IV SCH (13:12)
[2020-01-29] MEDS: Azithromycin 500 MG in Sodium Chloride 0.9% 250 ML IV SCH (13:54)
[2020-01-29 20:36] LABS: HEMOGLOBIN A1C 6.3 % (4.5-6.2)
[2020-01-29] MEDS: Latanoprost 0.005% Ophth Soln 2.5 ML Bottle EYEBOTH SCH (21:29)
[2020-01-29] MEDS: Sodium Chloride 0.9% 1,000 ML IV SCH (21:39)
[2020-01-29] MEDS: LORazepam 1 MG Tab PO PRN (21:54)
[2020-01-30] MEDS: Timolol Maleate 0.5% Ophth Soln 15 ML Bottle EYEBOTH SCH (08:15)
[2020-01-30] MEDS: Enoxaparin 40 MG/0.4 ML Syringe SUBCUT SCH (08:17)
[2020-01-30] MEDS: Escitalopram 10 MG Tab PO SCH (08:17)
[2020-01-30] MEDS: Dexamethasone 10 MG/ML SDV IVPUSH SCH (08:17)
[2020-01-30] MEDS: DULoxetine 60 MG Cap PO SCH (08:18)
[2020-01-30] MEDS: Pantoprazole 40 MG Tab.CR PO SCH (08:19)
[2020-01-30] MEDS: Clopidogrel 75 MG Tab PO SCH (08:19)
[2020-01-30] MEDS: cefTRIAXone 1 GM in Premix Bag 1 BAG IV SCH (13:02)
[2020-01-30] MEDS: Azithromycin 500 MG in Sodium Chloride 0.9% 250 ML IV SCH (14:45)
[2020-01-30] MEDS: Sodium Chloride 0.9% 1,000 ML IV SCH (18:03)
[2020-01-30] MEDS: LORazepam 1 MG Tab PO PRN (21:06)
[2020-01-30] MEDS: Latanoprost 0.005% Ophth Soln 2.5 ML Bottle EYEBOTH SCH (21:06)
[2020-01-31] MEDS: Pantoprazole 40 MG Tab.CR PO SCH (08:21)
[2020-01-31] MEDS: Clopidogrel 75 MG Tab PO SCH (08:22)
[2020-01-31] MEDS: Escitalopram 10 MG Tab PO SCH (08:23)
[2020-01-31] MEDS: DULoxetine 60 MG Cap PO SCH (08:23)
[2020-01-31] MEDS: Dexamethasone 10 MG/ML SDV IVPUSH SCH (08:25)
[2020-01-31] MEDS: Enoxaparin 40 MG/0.4 ML Syringe SUBCUT SCH (08:25)
[2020-01-31] MEDS: Timolol Maleate 0.5% Ophth Soln 15 ML Bottle EYEBOTH SCH (09:39)
[2020-01-31] MEDS: cefTRIAXone 1 GM in Premix Bag 1 BAG IV SCH (12:46)
--- NOTE | 2020-01-31 12:53 | PCM.PN ---
- General Info Date of Service: 01/31/20 Admission Dx/Problem (Free Text): Admission Diagnosis/Problem Admission Diagnosis/Problem Pneumonia Subjective Update: seen at bedside, no acute distress, reportedly pulse oxy drops to 88 when patient sleeps, upon walking she drops to 92% on RA, resting is sating 98% on RA - Review of Systems General: Denies: Fever, Weakness Pulmonary: Denies: Shortness of Breath, Pleuritic Chest Pain Cardiovascular: Denies: Chest Pain, Palpitations, Dyspnea on Exertion Gastrointestinal: Denies: Abdominal Pain, Constipation, Decreased Appetite Genitourinary: Denies: Dysuria, Frequency, Burning Musculoskeletal: Denies: Neck Pain, Shoulder Pain, Arm Pain Skin: Denies: Cyanosis, Jaundice, Mottled, Pallor - Patient Data Vitals - Most Recent: Last Vital Signs Temp 36.8 C 01/31/20 11:20 Pulse 73 01/31/20 11:20 Resp 18 01/31/20 11:20 BP 131/70 01/31/20 11:20 Pulse Ox 92 L 01/31/20 11:20 Weight - Most Recent: 63.503 kg I&O - Last 24 Hours: Intake & Output 01/30/20 01/31/20 01/31/20 22:59 06:59 14:59 Intake Total 470 903 Output Total 800 550 Balance -330 353 Lab Results Last 24 Hours: Laboratory Results - last 24 hr 01/30/20 01/31/20 Range/Units 18:47 06:42 POC Glucose 120 H 72 (60-110) mg/dL Jamir Results Last 24 Hours: Microbiology 01/27/20 12:08 Aerobic Blood Culture - Preliminary Blood - Venous NO GROWTH AFTER 4 DAYS Anaerobic Blood Culture - Final 01/27/20 12:21 Aerobic Blood Culture - Preliminary Blood - Venous - Lab Draw NO GROWTH AFTER 4 DAYS Anaerobic Blood Culture - Final Med Orders - Current: Current Medications Clopidogrel Bisulfate (Plavix) 75 mg PO DAILY [facility] Last Admin: 01/31/20 08:22 Dose: 75 mg Documented by: Dexamethasone (Dexamethasone) 6 mg IVPUSH DAILY [facility] Last Admin: 01/31/20 08:25 Dose: 6 mg Documented by: Duloxetine HCl (Cymbalta) 120 mg PO DAILY [facility] Last Admin: 01/31/20 08:23 Dose: 120 mg Documented by: Enoxaparin Sodium (Lovenox) 40 mg SUBCUT Q24H [facility] Last Admin: 01/31/20 08:25 Dose: 40 mg Documented by: Escitalopram Oxalate (Lexapro) 10 mg PO DAILY [facility] Last Admin: 01/31/20 08:23 Dose: 10 mg Documented by: Sodium Chloride (Normal Saline) 1,000 mls @ 50 mls/hr IV ASDIRECTED [facility] Last Admin: 01/30/20 18:03 Dose: 50 mls/hr Documented by: Ceftriaxone Sodium/Dextrose 1 (gm/ Premix) 50 mls @ 100 mls/hr IV Q24H [facility] Last Admin: 01/30/20 13:02 Dose: 100 mls/hr Documented by: Azithromycin 500 mg/ Sodium (Chloride) 250 mls @ 250 mls/hr IV Q24H [facility] Last Admin: 01/30/20 14:45 Dose: 250 mls/hr Documented by: Latanoprost (Xalatan 0.005% Ophth Soln) 0 ml EYEBOTH BEDTIME [facility] Last Admin: 01/30/20 21:06 Dose: Not Given Documented by: Lorazepam (Ativan) 1 mg PO BID PRN PRN Reason: Anxiety Last Admin: 01/30/20 21:06 Dose: 1 mg Documented by: Morphine Sulfate (Morphine) 2 mg IVPUSH Q4H PRN PRN Reason: Pain Last Admin: 01/29/20 21:35 Dose: 2 mg Documented by: Ondansetron HCl (Zofran) 4 mg IVPUSH Q4H PRN PRN Reason: Nausea Last Admin: 01/29/20 21:30 Dose: 4 mg Documented by: Pantoprazole Sodium (Protonix) 40 mg PO DAILY [facility] Last Admin: 01/31/20 08:21 Dose: 40 mg Documented by: Sodium Chloride (Saline Flush) 10 ml FLUSH ASDIRECTED PRN PRN Reason: Keep Vein Open Sodium Chloride (Saline Flush) 2.5 ml FLUSH ASDIRECTED PRN PRN Reason: Keep Vein Open Timolol Maleate (Timoptic 0.5% Ophth Soln) 1 ml EYEBOTH DAILY [facility] Last Admin: 01/31/20 09:39 Dose: 1 drop Documented by: Discontinued Medications Azithromycin (Zithromax) 500 mg IV Q24H [facility] Last Admin: 01/28/20 14:09 Dose: 500 mg Documented by: Heparin Sodium (Porcine) (Heparin Sodium) 5,000 units SUBCUT Q8H [facility] Last Admin: 01/29/20 10:14 Dose: Not Given Documented by: Sodium Chloride (Normal Saline) 1,000 mls @ 999 mls/hr IV .Bolus ONE Stop: 01/27/20 10:45 Last Admin: 01/27/20 09:51 Dose: 999 mls/hr Documented by: Azithromycin 500 mg/ Sodium (Chloride) 250 mls @ 250 mls/hr IV ONETIME ONE Stop: 01/27/20 12:51 Last Admin: 01/27/20 14:49 Dose: 250 mls/hr Documented by: Ceftriaxone Sodium/Dextrose 2 (gm/ Premix) 50 mls @ 100 mls/hr IV ONETIME ONE Stop: 01/27/20 12:21 Last Admin: 01/27/20 13:24 Dose: 100 mls/hr Documented by: Potassium Chloride/Sodium Chloride (Normal Saline With 40 Meq Kcl) 1,000 mls @ 150 mls/hr IV ASDIRECTED [facility] Stop: 01/27/20 20:24 Last Admin: 01/27/20 16:04 Dose: 150 mls/hr Documented by: Ceftriaxone Sodium 1 gm/ (Sodium Chloride) 50 mls @ 100 mls/hr IV Q24H [facility] Iopamidol (Isovue Multipack-370 (76%)) 100 ml IVPUSH ONETIME STA Stop: 01/27/20 12:08 Last Admin: 01/27/20 12:08 Dose: 100 ml Documented by: Ketorolac Tromethamine (Toradol) 15 mg IVPUSH ONETIME ONE Stop: 01/27/20 09:46 Last Admin: 01/27/20 09:52 Dose: 15 mg Documented by: Latanoprost (Xalatan 0.005% Ophth Soln) 0 ml EYEBOTH ONETIME ONE Stop: 01/28/20 23:31 Last Admin: 01/29/20 01:24 Dose: Not Given Documented by: Ondansetron HCl (Zofran) 4 mg IVPUSH ONETIME ONE Stop: 01/27/20 09:46 Last Admin: 01/27/20 09:51 Dose: 4 mg Documented by: Pantoprazole Sodium (Protonix) 40 mg PO DAILY [facility] Last Admin: 01/29/20 17:08 Dose: Not Given Documented by: - Exam General: Alert, Oriented Lungs: Clear to Auscultation, Normal Respiratory Effort Cardiovascular: Regular Rate, Regular Rhythm GI/Abdominal Exam: Normal Bowel Sounds, Soft, Non-Tender Sepsis Event Note - Evaluation Sepsis Screening Result: No Definite Risk - Focused Exam Vital Signs: Vital Signs Temp Pulse Resp BP Pulse Ox Pulse Ox 01/31/20 11:20 36.8 C 73 18 131/70 92 L 01/31/20 10:00 93 L 01/31/20 08:30 37.2 C 01/31/20 07:00 37.9 C 77 18 150/58 H 93 L 01/31/20 04:00 37.5 C 76 20 159/78 H 93 L Date Exam was Performed: 01/31/20 Time Exam was Performed: 13:00 - Problem List & Annotations (1) COVID-19 SNOMED Code(s): 711834487 Code(s): U07.1 - COVID-19 Status: Acute Current Visit: Yes (2) Nausea vomiting and diarrhea SNOMED Code(s): 8997044 Code(s): R11.2 - NAUSEA WITH VOMITING, UNSPECIFIED; R19.7 - DIARRHEA, UNSPECIFIED Status: Acute Current Visit: Yes (3) Pneumonia SNOMED Code(s): 366472457 Code(s): J18.9 - PNEUMONIA, UNSPECIFIED ORGANISM Status: Acute Current Visit: Yes Qualifiers: Laterality: left Lung location: lower lobe of lung - Problem List Review Problem List Initiated/Reviewed/Updated: Yes - Plan Plan:: 79 yo female admitted COVID-19. We will treat supportively. We will continue Rocephin and Azithromycin for possible pneumonia. Dexamethasone for COVID with hypoxia. Patient requests to be DNR/DNI. Today patient is doing much better, on RA now, she will need PRN oxygen at home as she does drop during night and upon ambulation Will arrange for home oxygen Otherwise patient seems to be doing well, she does want to be discharged today or at most tomorrow
[2020-01-31] MEDS: Azithromycin 500 MG in Sodium Chloride 0.9% 250 ML IV SCH (13:42)
[2020-01-31 15:16] VITALS: BP 149/61; PULSE 67
--- NOTE | 2020-01-31 16:47 | PCM.DCSUM1 ---
Discharge Summary - Hospital Course Free Text/Narrative:: 79 yo female with pmh of HTN, and CVA who was tested positive for Covid eight days ago. Her boyfriend that she lives with also has covid and was transferred last week to [place] after being intubated. She reports a week of fatigue, and several days of nausea, diarrhea and vomiting. She denies any fevers or cough. She reports shortness of breath today. In the ED her vital signs were stable but she was ill appearing. Lab work showed some mild hyponatremia and hypokalemia. Her CT abdomen and pelvis was unremarkable. CXR showed vague left lung base density. Patient was tested positive for covid, was requiring oxygen so was admitted for further management. Patient was started on iV antibiotics for possible underlying bacterial PNA, IV dexamethasone, patient slowly improved and was able to be weaned off oxygen except for nigh time when she would drop to high 80s. Patient was keen on getting discharged, she was eventually medically stable to be discharged on home oxygen which was to be used while she is sleeping for a month along with full course of oral steroids. Diagnosis: Stroke: No - Discharge Data Discharge Date: 01/31/20 Discharge Disposition: Home, Self-Care 01 Condition: Fair - Referral to Home Health Primary Care Physician: PCP None - Discharge Diagnosis/Problem(s) (1) COVID-19 SNOMED Code(s): 044396162 ICD Code: U07.1 - COVID-19 Status: Acute (2) Nausea vomiting and diarrhea SNOMED Code(s): 8951382 ICD Code: R11.2 - NAUSEA WITH VOMITING, UNSPECIFIED; R19.7 - DIARRHEA, UNSPECIFIED Status: Acute (3) Pneumonia SNOMED Code(s): 516550717 ICD Code: J18.9 - PNEUMONIA, UNSPECIFIED ORGANISM Status: Acute Qualifiers: Laterality: left Lung location: lower lobe of lung - Patient Instructions Diet: Heart Healthy Diet Activity: As Tolerated, No Strenuous Activities, Rest and Relax Today Driving: May Drive Today Showering/Bathing: May Shower Notify Provider of: Fever, Increased Pain, Swelling and Redness, Drainage, Nausea and/or Vomiting - Discharge Plan *PRESCRIPTION DRUG MONITORING PROGRAM REVIEWED*: No *COPY OF PRESCRIPTION DRUG MONITORING REPORT IN PATIENT VICENTA: No Prescriptions/Med Rec: Azithromycin 500 mg PO DAILY #3 tablet dexAMETHasone [Dexamethasone] 6 mg PO DAILY #6 tab Home Medications: Home Meds LORazepam 1 tab PO BID PRN 06/19/17 [History] Clopidogrel Bisulfate [Clopidogrel] 75 mg PO DAILY 03/31/18 [History] DULoxetine HCl [Duloxetine HCl] 120 mg PO DAILY 03/31/18 [History] Latanoprost/Pf [Latanoprost 0.005% Eye Drop] 1 drop EYEBOTH BEDTIME 11/08/18 [History] Timolol [Betimol] 1 drop EYEBOTH DAILY 04/26/19 [History] cloNIDine [Catapres] 0.1 mg PO BEDTIME 04/26/19 [History] Escitalopram [Lexapro] 10 mg PO DAILY 01/27/20 [History] hydroCHLOROthiazide [Hydrochlorothiazide] 12.5 mg PO DAILY 01/27/20 [History] Azithromycin 500 mg PO DAILY #3 tablet 01/31/20 [Rx] dexAMETHasone [Dexamethasone] 6 mg PO DAILY #6 tab 01/31/20 [Rx] Oxygen Therapy Mode: Nasal Cannula (PRN) Oxygen Flow Rate (L/min): 2 FiO2: 40 Maintain SpO2% greater than: 92 Patient Handouts: COVID-19 Frequently Asked Questions, Azithromycin tablets, COVID-19: How to Protect Yourself and Others - CDC, Dexamethasone tablets, Community-Acquired Pneumonia, Adult, [id number] Referrals: [facility] [Outside] Soledad Florez DO [Ordering Only Provider] - 02/14/20 9:45 am (Please arrive 15 minutes early with identification and insurance cards and your own facemask.) - Discharge Summary/Plan Comment DC Time >30 min.: No - Patient Data Vitals - Most Recent: Last Vital Signs Temp 35.9 C L 01/31/20 15:02 Pulse 67 01/31/20 15:02 Resp 20 01/31/20 15:02 BP 149/61 H 01/31/20 15:02 Pulse Ox 92 L 01/31/20 15:02 Weight - Most Recent: 63.503 kg I&O - Last 24 hours: Intake & Output 01/31/20 01/31/20 01/31/20 06:59 14:59 22:59 Intake Total 903 Output Total 550 Balance 353 Lab Results - Last 24 hrs: Laboratory Results - last 24 hr 07/23/20 07/24/20 07/24/20 Range/Units 18:47 06:42 15:13 POC Glucose 120 H 72 124 H (60-110) mg/dL TIM Results - Last 24 hrs: Microbiology 01/27/20 12:08 Aerobic Blood Culture - Preliminary Blood - Venous NO GROWTH AFTER 4 DAYS Anaerobic Blood Culture - Final 01/27/20 12:21 Aerobic Blood Culture - Preliminary Blood - Venous - Lab Draw NO GROWTH AFTER 4 DAYS Anaerobic Blood Culture - Final Med Orders - Current: Current Medications Clopidogrel Bisulfate (Plavix) 75 mg PO DAILY [facility] Last Admin: 01/31/20 08:22 Dose: 75 mg Documented by: Dexamethasone (Dexamethasone) 6 mg IVPUSH DAILY [facility] Last Admin: 01/31/20 08:25 Dose: 6 mg Documented by: Duloxetine HCl (Cymbalta) 120 mg PO DAILY [facility] Last Admin: 01/31/20 08:23 Dose: 120 mg Documented by: Enoxaparin Sodium (Lovenox) 40 mg SUBCUT Q24H [facility] Last Admin: 01/31/20 08:25 Dose: 40 mg Documented by: Escitalopram Oxalate (Lexapro) 10 mg PO DAILY [facility] Last Admin: 01/31/20 08:23 Dose: 10 mg Documented by: Sodium Chloride (Normal Saline) 1,000 mls @ 50 mls/hr IV ASDIRECTED [facility] Last Admin: 01/30/20 18:03 Dose: 50 mls/hr Documented by: Ceftriaxone Sodium/Dextrose 1 (gm/ Premix) 50 mls @ 100 mls/hr IV Q24H [facility] Last Admin: 01/31/20 12:46 Dose: 100 mls/hr Documented by: Azithromycin 500 mg/ Sodium (Chloride) 250 mls @ 250 mls/hr IV Q24H [facility] Last Admin: 01/31/20 13:42 Dose: 250 mls/hr Documented by: Latanoprost (Xalatan 0.005% Ophth Soln) 0 ml EYEBOTH BEDTIME [facility] Last Admin: 01/30/20 21:06 Dose: Not Given Documented by: Lorazepam (Ativan) 1 mg PO BID PRN PRN Reason: Anxiety Last Admin: 01/30/20 21:06 Dose: 1 mg Documented by: Morphine Sulfate (Morphine) 2 mg IVPUSH Q4H PRN PRN Reason: Pain Last Admin: 01/29/20 21:35 Dose: 2 mg Documented by: Ondansetron HCl (Zofran) 4 mg IVPUSH Q4H PRN PRN Reason: Nausea Last Admin: 01/29/20 21:30 Dose: 4 mg Documented by: Pantoprazole Sodium (Protonix) 40 mg PO DAILY [facility] Last Admin: 01/31/20 08:21 Dose: 40 mg Documented by: Sodium Chloride (Saline Flush) 10 ml FLUSH ASDIRECTED PRN PRN Reason: Keep Vein Open Sodium Chloride (Saline Flush) 2.5 ml FLUSH ASDIRECTED PRN PRN Reason: Keep Vein Open Timolol Maleate (Timoptic 0.5% Oph Soln) 1 ml EYEBOTH DAILY [facility] Last Admin: 01/31/20 09:39 Dose: 1 drop Documented by: Discontinued Medications Azithromycin (Zithromax) 500 mg IV Q24H [facility] Last Admin: 01/28/20 14:09 Dose: 500 mg Documented by: Heparin Sodium (Porcine) (Heparin Sodium) 5,000 units SUBCUT Q8H [facility] Last Admin: 01/29/20 10:14 Dose: Not Given Documented by: Sodium Chloride (Normal Saline) 1,000 mls @ 999 mls/hr IV .Bolus ONE Stop: 01/27/20 10:45 Last Admin: 01/27/20 09:51 Dose: 999 mls/hr Documented by: Azithromycin 500 mg/ Sodium (Chloride) 250 mls @ 250 mls/hr IV ONETIME ONE Stop: 01/27/20 12:51 Last Admin: 01/27/20 14:49 Dose: 250 mls/hr Documented by: Ceftriaxone Sodium/Dextrose 2 (gm/ Premix) 50 mls @ 100 mls/hr IV ONETIME ONE Stop: 01/27/20 12:21 Last Admin: 01/27/20 13:24 Dose: 100 mls/hr Documented by: Potassium Chloride/Sodium Chloride (Normal Saline With 40 Meq Kcl) 1,000 mls @ 150 mls/hr IV ASDIRECTED [facility] Stop: 01/27/20 20:24 Last Admin: 01/27/20 16:04 Dose: 150 mls/hr Documented by: Ceftriaxone Sodium 1 gm/ (Sodium Chloride) 50 mls @ 100 mls/hr IV Q24H [facility] Iopamidol (Isovue Multipack-370 (76%)) 100 ml IVPUSH ONETIME STA Stop: 01/27/20 12:08 Last Admin: 01/27/20 12:08 Dose: 100 ml Documented by: Ketorolac Tromethamine (Toradol) 15 mg IVPUSH ONETIME ONE Stop: 01/27/20 09:46 Last Admin: 01/27/20 09:52 Dose: 15 mg Documented by: Latanoprost (Xalatan 0.005% Ophth Soln) 0 ml EYEBOTH ONETIME ONE Stop: 01/28/20 23:31 Last Admin: 01/29/20 01:24 Dose: Not Given Documented by: Ondansetron HCl (Zofran) 4 mg IVPUSH ONETIME ONE Stop: 01/27/20 09:46 Last Admin: 01/27/20 09:51 Dose: 4 mg Documented by: Pantoprazole Sodium (Protonix) 40 mg PO DAILY [facility] Last Admin: 01/29/20 17:08 Dose: Not Given Documented by:
== END 2020-01-31 17:20 | disposition home or self-care (01) | DRG 177 ==
LOC: MW.ED 09:32 → MW.MS 13:26
PROVIDERS: ADMIT Internal Medicine; ATTEND Internal Medicine
DX: U07.1 COVID-19 (principal); J12.89 Other viral pneumonia; E87.1 Hypo-osmolality and hyponatremia; J18.9 Pneumonia, unspecified organism; Z66 Do not resuscitate; R11.2 Nausea with vomiting, unspecified; H53.2 Diplopia; R19.7 Diarrhea, unspecified; J30.9 Allergic rhinitis, unspecified; H40.9 Unspecified glaucoma; H54.7 Unspecified visual loss; E78.00 Pure hypercholesterolemia, unspecified; I10 Essential (primary) hypertension; G43.909 Migraine, unspecified, not intractable, without status migrainosus; K21.9 Gastro-esophageal reflux disease without esophagitis; K44.9 Diaphragmatic hernia without obstruction or gangrene; E87.6 Hypokalemia; K57.90 Diverticulosis of intestine, part unspecified, without perforation or abscess without bleeding; Z86.010 Personal history of colon polyps; M19.90 Unspecified osteoarthritis, unspecified site; G89.29 Other chronic pain; M54.9 Dorsalgia, unspecified; Z88.8 Allergy status to other drugs, medicaments and biological substances; Z88.5 Allergy status to narcotic agent; Z86.73 Personal history of transient ischemic attack (TIA), and cerebral infarction without residual deficits; Z91.09 Other allergy status, other than to drugs and biological substances; F32.9 Major depressive disorder, single episode, unspecified; F41.9 Anxiety disorder, unspecified; Z98.51 Tubal ligation status; Z98.890 Other specified postprocedural states; E66.9 Obesity, unspecified; Z68.25 Body mass index [BMI] 25.0-25.9, adult; L30.9 Dermatitis, unspecified; Z98.49 Cataract extraction status, unspecified eye; Z90.49 Acquired absence of other specified parts of digestive tract; Z90.710 Acquired absence of both cervix and uterus; Z88.6 Allergy status to analgesic agent; Z91.030 Bee allergy status; Z88.2 Allergy status to sulfonamides; Z91.048 Other nonmedicinal substance allergy status; Z79.02 Long term (current) use of antithrombotics/antiplatelets; Z79.899 Other long term (current) drug therapy
CPT/HCPCS: 71045; 74177; 99285; 96374; 96375; 96361; 93005; 85025; 81001; 36415; 80053; 83735; 84484; 83690; 87040 ×2; 86900; 86901; 86850; J0696; Q9967; J1885; J7030; J2405; 80048; 82962; 83036; 93010; 99284; A9270-GY; J0456; J1100; J1644; J1650; J2270; J3480; J7050

== ENCOUNTER 2022-05-27 09:08 | Day surgery (SDC) | payer MEDICARE, OTHER ==
[~2022-05-27 09:08] MED LIST changes: +Propofol 200 MG/20 ML SDV ONE; -Sodium Chloride 0.9% 10 ML SDV IV PRN; +Sodium Chloride 0.9% 20 ML SDV IV PRN
[2022-05-27 12:39] VITALS: BP 115/55; PULSE 72
== END 2022-05-27 13:20 | disposition home or self-care (01) ==
LOC: MW.SDS 09:08
PROVIDERS: ATTEND Surgery
DX: D12.3 Benign neoplasm of transverse colon (principal); D12.2 Benign neoplasm of ascending colon; D12.4 Benign neoplasm of descending colon; D12.5 Benign neoplasm of sigmoid colon; K59.00 Constipation, unspecified; E78.00 Pure hypercholesterolemia, unspecified; I10 Essential (primary) hypertension; K21.9 Gastro-esophageal reflux disease without esophagitis; M19.90 Unspecified osteoarthritis, unspecified site; F41.9 Anxiety disorder, unspecified; F32.A Depression, unspecified; Z88.8 Allergy status to other drugs, medicaments and biological substances; Z88.6 Allergy status to analgesic agent; Z91.030 Bee allergy status; Z88.2 Allergy status to sulfonamides; Z86.73 Personal history of transient ischemic attack (TIA), and cerebral infarction without residual deficits; Z98.890 Other specified postprocedural states; Z90.49 Acquired absence of other specified parts of digestive tract; Z86.010 Personal history of colon polyps; Z91.041 Radiographic dye allergy status; Z79.899 Other long term (current) drug therapy
CPT/HCPCS: 00811; 99100; J2704; J7120

== ENCOUNTER 2023-09-14 09:17 | Day surgery (SDC) | payer MEDICARE, OTHER ==
[~2023-09-14 09:17] MED LIST changes: -Lactated Ringers 1,000 ML IV SCH; -Propofol 200 MG/20 ML SDV ONE
[2023-09-14] MEDS: Lactated Ringers 1,000 ML IV SCH (09:48)
[2023-09-14] MEDS ORDERED: Lidocaine 2% 5 ML SDV ONE (09:56)
[2023-09-14] MEDS ORDERED: Propofol 200 MG/20 ML SDV ONE (09:56)
[2023-09-14 12:49] VITALS: BP 108/89; PULSE 75
== END 2023-09-14 10:59 | disposition home or self-care (01) ==
LOC: MW.SDS 09:17
PROVIDERS: ATTEND Surgery
DX: D12.2 Benign neoplasm of ascending colon (principal); K63.5 Polyp of colon; K59.00 Constipation, unspecified; J30.9 Allergic rhinitis, unspecified; M19.90 Unspecified osteoarthritis, unspecified site; E78.5 Hyperlipidemia, unspecified; I10 Essential (primary) hypertension; K21.9 Gastro-esophageal reflux disease without esophagitis; K92.1 Melena; N89.8 Other specified noninflammatory disorders of vagina; K44.9 Diaphragmatic hernia without obstruction or gangrene; Z91.041 Radiographic dye allergy status; Z88.6 Allergy status to analgesic agent; Z79.899 Other long term (current) drug therapy
CPT/HCPCS: 45380; 88305; J2704; J7120; 00811; 99100; J3490

== ENCOUNTER 2024-04-12 12:01 | Emergency (ER) | payer MEDICARE, OTHER ==
[2024-04-12 12:22] LABS: BASOPHILS ABSOLUTE AUTO 0.04 K/uL (0.00-0.20); BASOPHILS PERCENT AUTO 0.7 % (0.0-1.0); EOSINOPHILS ABSOLUTE AUTO 0.17 K/uL (0.00-0.45); EOSINOPHILS PERCENT AUTO 3.1 % (0.0-6.0); HEMATOCRIT 39.7 % (37.0-47.0); HEMOGLOBIN 13.3 g/dL (12.0-16.0); IMMATURE GRAN ABSOLUTE AUTO 0.01 K/uL (0.00-0.05); IMMATURE GRAN PERCENT AUTO 0.2 % (0.0-0.4); LYMPHOCYTES ABSOLUTE AUTO 2.22 K/uL (1.00-4.80); MEAN CORPUSCULAR HEMOGLOBIN 29.8 pg (28.0-32.0); MEAN CORPUSCULAR HGB CONC 33.5 g/dL (32.0-36.0); MEAN CORPUSCULAR VOLUME 88.8 fL (83.0-99.0); MEAN PLATELET VOLUME 9.5 fL (9.4-12.3); MONOCYTES ABSOLUTE AUTO 0.38 K/uL (0.00-0.80); NEUTROPHILS ABSOLUTE AUTO 2.59 K/uL (1.80-7.70); PLATELET COUNT,PLT 253 K/uL (150-400); RED BLOOD CELL COUNT 4.47 M/uL (4.10-5.30); WHITE BLOOD CELL COUNT,WBC 5.41 K/uL (3.9-11.3)
[2024-04-12] MEDS: Sodium Chloride 0.9% 1,000 ML IV ONE (12:22)
[2024-04-12 12:56] LABS: A/G RATIO 1.1 (0.9-1.6); ALBUMIN 3.7 g/dL (3.4-5.0); BILIRUBIN TOTAL 0.7 mg/dL (0.2-1.0); CALCIUM 9.6 mg/dL (8.5-10.1); CARBON DIOXIDE,CO2 28.6 mmol/L (21.0-32.0); CREATININE 0.7 mg/dL (0.6-1.0); EST CRCL DRUG DOSING (CG) 59.01 mL/min; MAGNESIUM 1.9 mg/dL (1.8-2.4); POTASSIUM,K 3.5 mmol/L (3.5-5.1); TSH ULTRASENSITIVE 3.74 uIU/mL (0.36-3.74)
[2024-04-12 13:43] LABS: CORONAVIRUS COVID-19 NAA NEGATIVE (NEGATIVE); INFLUENZA A NAA NEGATIVE (NEGATIVE); INFLUENZA B NAA NEGATIVE (NEGATIVE); RESPIRATORY SYNCYTIAL VIR NAA NEGATIVE (NEGATIVE)
[2024-04-12 14:06] LABS: APPEARANCE,URINE CLEAR; BILIRUBIN,URINE NEGATIVE (NEGATIVE); COLOR,URINE YELLOW; GLUCOSE,URINE NEGATIVE (NEGATIVE); KETONES,URINE 15 mg/dL (NEGATIVE); LEUKOCYTE ESTERASE,URINE NEGATIVE (NEGATIVE); NITRITE,URINE NEGATIVE (NEGATIVE); OCCULT BLOOD,URINE NEGATIVE (NEGATIVE); PROTEIN,URINE NEGATIVE (NEGATIVE); UROBILINOGEN,URINE 0.2 EU/dL (<2.0)
[2024-04-12 17:21] VITALS: BP 138/77; PULSE 68
== END 2024-04-12 15:04 | disposition home or self-care (01) ==
LOC: MW.ED 12:01
DX: R55 Syncope and collapse (principal); I10 Essential (primary) hypertension; Z86.73 Personal history of transient ischemic attack (TIA), and cerebral infarction without residual deficits; Z79.899 Other long term (current) drug therapy; Z88.8 Allergy status to other drugs, medicaments and biological substances; Z91.041 Radiographic dye allergy status; Z91.048 Other nonmedicinal substance allergy status; Z88.6 Allergy status to analgesic agent; Z88.1 Allergy status to other antibiotic agents; Z88.2 Allergy status to sulfonamides; Z91.011 Allergy to milk products; Z75.8 Other problems related to medical facilities and other health care
CPT/HCPCS: 0241U; 36415; 70450; 71045; 80053; 81003; 83735; 84443; 84484; 85025; 93005; 96360; 99285; J7030; 93010; 99282